=== PATIENT | female | born 1945 | race Caucasian/White ===

== ENCOUNTER 2020-04-03 22:51 | Emergency (ER) | payer OTHER, BC ==
--- OUTSIDE RECORDS SUMMARY | 2020-04-03 22:55 | XMS REPORT ---
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 Acti ve Problem Interstitial cystitis N30.10 Active Problem Essential hypertension I10 Activ e Problem Conductive hearing loss, bilateral H90.0 Active Problem IFG (impaired fasting glucose) R73.01 Active Problem BMI 29.0-29.9,adult Z68.29 Active Problem Primary insomnia F51.01 Active Problem PAC (premature atrial contraction) I49.1 Active Problem Intractable migraine without status G43.919 Active migrainosus, unspecified migraine type Problem Rhinitis, unspecified type J31.0 A ctive Medications Medication Code Code Instructions Start End Status Dosage System Date Date Bystolic [facility] 61951405838 10 mg orally Inactive 1 tab (s) once a day Losartan [place] 93913174046 100 mg orally Jan 24, Active 1 tab (s) Potassium once a day 2019 Norvasc [facility] 06354611595 5 mg orally once Jan 24, Active 1 t ab(s) a day 2019 Results No Known Results Summary Purpose eClinicalWorks Submission
--- OUTSIDE RECORDS SUMMARY | 2020-04-03 22:55 | XMS REPORT ---
:1945 Author Organization [employer]Works Care Team Providers Name Role Phone FLORENCIA BROWNE Provider Role Unavailable Allergies, Adverse Reactions, Alerts Substance Reaction Event Type N.K.D.A. 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 Acti ve Medications Medication Code Code Instructions Start End Status Dosage System Date Date Bystolic [facility] 59629075839 5 mg orally Jan 11, Active 1 tab(s ) once a day 2018 atorvastatin [facility] 67151728372 10MG orally Active 1 t ab(s) once a day (at bedtime) Imitrex [facility] 57225941039 50 mg orally Oct 04, Active 1 tab(s ) once as needed 2018 for migraine Metoprolol [facility] 74764018105 100 mg orally Inactive 1 tab(s) Tartrate once a day AMLODIPINE [facility] 71152414360 5 mg orally Active 1 tab (s) BESYLATE once a day Boniva [facility] 82626495720 150 mg orally Active 1 tab( s) once a month imipramine [facility] 74729300495 50 mg orally Jan 11, Active 1 ta b(s) once a day at 2019 bedtime Pepcid [facility] 80178186061 20 mg orally Active 1 tab(s ) once as needed Vital Signs Date/Time: Jan 11, 2019 Temperature 97.6 F Weight 155 lbs Height 60.5 in Respiratory Rate 16 /min Pulse 66 /min Blood Pressure Diastolic 80 mm Hg Blood Pressure Systolic 130 mm Hg BMI 29.77 Index Oximetry 98 % Results No Known Results Summary Purpose eClinicalWorks Submission
--- OUTSIDE RECORDS SUMMARY | 2020-04-03 22:55 | XMS REPORT ---
:1945 Author Organization eClinicalWorks Care Team Providers Name Role Phone FLORENCIA BROWNE Provider Role Unavailable Allergies, Adverse Reactions, Alerts Substance Reaction Event Type N.K.D.A. Info Not Available Non Drug Allergy Problems Problem Type Condition Code Onset Dates Condition Statu s Assessment Primary insomnia F51.01 Active Problem Interstitial cystitis N30.10 Active Assessment Hypercholesteremia E78.00 Active Assessment Essential hypertension I10 Activ e Problem Intractable migraine without status G43.919 Active migrainosus, unspecified migraine type Problem Rhinitis, unspecified type J31.0 A ctive Problem Primary insomnia F51.01 Active Problem Hypercholesteremia E78.00 Active Problem Essential hypertension I10 Activ e Problem PAC (premature atrial contraction) I49.1 Active Problem 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 Acti ve Medications Medication Code Code Instructions Start End Status Dosage System Date Date Boniva [facility] 14815190837 150 mg orally Active 1 tab( s) once a month atorvastatin [facility] 79885251843 10MG orally Active 1 t ab(s) once a day (at bedtime) AMLODIPINE [facility] 11812771930 5 mg orally Active 1 tab (s) BESYLATE once a day Ambien [facility] 28491039681 5 mg orally Oct 04, Inactive 1 tab(s ) once a day (at 2018 bedtime) Metoprolol [facility] 74324851198 100 mg orally Active 1 t ab(s) Tartrate once a day imipramine [facility] 89310318961 50 mg orally Active 1 ta b(s) once a day at bedtime Pepcid [facility] 73076401925 20 mg orally Active 1 tab(s ) once as needed Imitrex [facility] 54557446983 50 mg orally Oct 04, Active 1 tab(s ) once as needed 2017 for migraine Results No Known Results Summary Purpose eClinicalWorks Submission
--- OUTSIDE RECORDS SUMMARY | 2020-04-03 22:55 | XMS REPORT | Continuity of Care Document ---
:1945 Author Organization [facility] [employer] [facility] Care Team Providers Name Role Phone [facility] [employer] [facility] Unavailable Un available Problems Problem Status Onset Classification Date Comments Sourc e Date Reported Hypercholesteremia Active 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/2020 [facility] Interstitial cystitis Active 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/2020 [facility] Essential Active Diagnosis 02/27/2020 [facility] hypertension Med Julius up Osteoporosis Active Diagnosis 03/30/2018 [facility] Foot swelling Active Diagnosis 09/10/2017 [facility] Left foot pain Active Diagnosis 09/10/2017 [facility] Closed fracture of Active Diagnosis 09/10/2017 [facility] left foot, initial M ed Group encounter Osteoporosis of Active 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/2020 [facility] forearm [facility] PAC (premature atrial Active 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/2020 [facility] contraction) Med [place] up Obesity due to excess Active Diagnosis 04/04/2018 [facility] calories Med Group Weight gain Active Diagnosis 01/31/2018 [facility] Preop cardiovascular Active Diagnosis 01/31/2018 [facility] exam [facility] Group Unspecified Active Diagnosis 03/30/2018 [facility] abnormalities of Med Group breathing Special screening for Active Diagnosis 03/30/2018 [facility] other specified Med Group conditions Encounter for Active Diagnosis 11/29/2018 [facility] screening mammogram Med Group for breast cancer Encounter for Active Diagnosis 12/30/2019 [facility] immunization Med [facility] up Unspecified Active Diagnosis 03/30/2018 [facility] conductive hearing M ed Group loss Osteoporosis Active Diagnosis 03/30/2018 [facility] screening Med Group Screening for other Active Diagnosis 03/30/2018 [facility] and unspecified Med Group cardiovascular conditions Fatigue due to Active Diagnosis 03/28/2018 [facility] excessive exertion, Med Group initial encounter Overweight Active Diagnosis 03/28/2018 [facility] Bradycardia Active Diagnosis 03/28/2018 [facility] Fracture-metatarsal Active Problem 07/10/2016 [facility] Ankle Active Problem 07/10/2016 [place] instability/hypermobi [facility] Tenosynovitis of foot Active Problem 07/10/2016 [place] [facility] BMI 29.0-29.9,adult Active 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/2020 [facility] Seborrheic keratosis Active Diagnosis 07/06/2018 [facility] Dependent rubor Active Diagnosis 05/12/2018 [facility] Leg edema Active Diagnosis 05/12/2018 [facility] Pain in left foot Active Diagnosis 07/10/2016 [facility] Keratoderma Active Diagnosis 07/10/2016 [facility] Plantar Active Problem 07/10/2016 [place] porokeratosis, Branc h acquired Podiatry Respiratory Active Diagnosis 12/30/2019 [facility] re abnormality Med Grou p Intractable migraine Active 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/2020 [facility] without status Jose adam migrainosus, unspecified migraine type Rhinitis, unspecified Active 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/2020 [facility] type Med Group Primary insomnia Active 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/2020 [facility] Conductive hearing Active 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/2020 [facility] loss, bilateral Med Group IFG (impaired fasting Active 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/2020 [facility] glucose) Med Group Fatigue, unspecified Active Diagnosis 01/18/2020 [facility] type Med Group Advance directive Active Diagnosis 12/30/2019 [facility] discussed with Jose adam patient Bronchitis Active Diagnosis 11/26/2019 [facility] Elevated TSH Active Diagnosis 01/18/2020 [facility] Viral gastroenteritis Active Diagnosis 10/16/2018 [facility] Acute gastritis Active Diagnosis 10/16/2018 [facility] without hemorrhage, Med Group unspecified gastritis type Excessive use of Active Diagnosis 10/16/2018 [facility] nonsteroidal Med Julius up anti-inflammatory drug (NSAID) Pharyngitis, Active Diagnosis 12/13/2018 [facility] unspecified etiology Med Group Allergic rhinitis, Active Diagnosis 03/09/2019 [facility] seasonal Med Group Medications Medication Details Route Status Patient Ordering Order Source Instructions Provider Date hydrochlorothiazide 1 tab(s) orally Active 12.5 mg [facility] 01/28/ [facility] orally once a 2020 Med Group day Losartan Potassium 1 tab(s) orally Active 100 mg orally [facility] 01/24/ [facility] once a day 2019 Med Group Norvasc 1 tab(s) orally Active 5 mg orally [facility] 01/24/ [facility] once a day 2019 Med Group clonidine 1 tab(s) orally Active 0.1 mg orally [facility] 01/09/ [facility] q6hrs as 2019 Med Group needed for SBP > 160 DBP > 100 Losartan Potassium 1 tab(s) orally Active 100 mg orally [facility] 01/09/ [facility] once a day 2019 Med Group Tessalon Perles 1-2 orally Active 100 mg orally [facility] 11/15/ [facility] cap(s) 3 times a day 2018 Med Group as needed for cough levofloxacin 1 tab(s) orally Active 500 mg orally [facility] 11/15/ [facility] every 2018 Med Group hours Amitriptyline 1-2 orally Active 10 mg orally [facility] 06/15/ [facility] Hydrochloride tab(s) once a day 2019 Med Julius up (at bedtime) temazepam 1 cap(s) orally Active 15 mg orally [facility] 05/23/ [facility] once a day 2019 Med Group (at bedtime) Bystolic 1 tab(s) orally Active 10 mg orally [facility] 05/16/ [facility] once a day 2018 Med Group TraZODONE 1-2 orally Active 50 mg orally [facility] 05/16/ [facility] Hydrochloride tab(s) qhs as needed 2018 Med Group Tessalon Perles 1-2 orally Active 100 mg orally [place] 03/14/ [facility] cap(s) 3 times a day 2019 Med Group as needed for cough prednisone 1 tab(s) orally Active 20 mg orally [facility] 03/12/ [facility] once a day 2019 Med Group levofloxacin 1 tab(s) orally Active 500 mg orally [facility] 03/02/ [facility] every 2018 [facility] Group hours Bystolic 1 tab(s) orally Active 5 mg orally [facility] 01/11/ [facility] once a day 2019 Med Group imipramine 1 tab(s) orally Active 50 mg orally [facility] 01/11/ [facility] once a day at 2019 Med Group bedtime Imitrex 1 tab(s) orally Active 50 mg orally [facility] 10/04/ [facility] once as 2018 Med Group needed for migraine Ambien 1 tab(s) orally Active 5 mg orally [facility] 10/04/ [facility] once a day 2018 Med Group (at bedtime) hydrochlorothiazide 1 tab(s) orally Active 12.5 mg [facility] 05/01/ [facility] orally once a 2018 Med Group day Metoprolol Tartrate 1 tab(s) orally Active 100 mg orally [facility] 11/25 / [facility] once a day 2016 Med Group Boniva 1 tab(s) orally Active 150 mg orally [facility] 01/17/ [facility] once a month 2017 Med Group Boniva 1 tab(s) orally Active 150 mg orally [facility] once a month Med Group atorvastatin 1 tab(s) orally Active 10 mg orally [facility] once a day [facility] Group metoprolol 1 tab(s) orally Active 100 mg orally [facility] once a day Med Group AMLODIPINE BESYLATE 1 tab(s) orally Active 5 mg orally [facility] once a day Med Group imipramine 1 tab(s) orally Active 50 mg orally [facility] once a day Med Group (at bedtime) Nexium 1 cap(s) orally Active 40 mg orally [facility] once a day Med Group Metoprolol Tartrate 1 tab(s) orally Active 100 mg orally [facility] once a day [facility] Group Nexium 1 cap(s) orally Active 20 mh orally DE[facility] once a day Med Group Boniva 1 tab(s) orally Active 150 mg orally [facility] once a month Med Group AMLODIPINE BESYLATE 1 tab(s) orally Active 5 mg orally GISELL [facility] once a day Med Group Boniva 1 tab(s) orally Active 150MG orally ALBER[place]AD[facility] once a month Med Group atorvastatin 1 tab(s) orally Active 10MG orally BR[facility] once a day Med Group (at bedtime) alendronate 1 tab(s) orally Active 70 mg orally [facility] once a week [facility] Group Nexium 1 cap(s) orally Active 40 mg orally [place] [facility] once a day Med Group imipramine 1 tab(s) orally Active 50 mg orally [facility] once a day [facility] Group atorvastatin 1 tab(s) orally Active 10 mg orally [facility] once a day Med Group (at bedtime) AMLODIPINE BESYLATE 1 tab(s) orally Active 5 mg orally [place] once a day Med Group metoprolol 1 tab(s) orally Active 100 mg orally [facility] once a day [facility] Group Pepcid 1 tab(s) orally Active 20 mg orally [facility] once as Med Group needed Bystolic 1 tab(s) orally Active 10 mg orally [facility] once a day Med Group Bystolic 1 tab(s) orally Active 5 mg orally [facility] once a day Med Group Allergies, Adverse Reactions, Alerts Substance Category Reaction Severity Reaction Status Date Comments S ource type Reported N.K.D.A. Adverse Info Not Adverse [facility] Reaction Available Reaction 9 Med Group trazodone Adverse made her Adverse Active [facility] Reaction feel so bad Reaction 0 Me d Group temazepam Adverse upset Adverse Active [facility] Reaction stomach Reaction 0 Med Gr oup Immunizations Immunization Date Given Site Status Last Comments Source Updated TDap 05/02/2019 completed [facility] Pneumovax 23 02/27/2018 completed [facility] Results No Data Provided for This Section Pathology Reports No Data Provided for This Section Diagnostic Reports No Data Provided for This Section Consultation Notes No Data Provided for This Section Discharge Summaries No Data Provided for This Section History and Physicals No Data Provided for This Section Vital Signs Vital Sign Value Date Comments Source Temperature Oral (F) 97.7 F 01/30/2020 [facility] Weight 158 01/30/2020 [facility] Height 60.5 01/30/2020 [facility] Respitory Rate 16 01/30/2020 [facility] Diastolic (mm Hg) 80 01/30/2020 [facility] Systolic (mm Hg) 150 01/30/2020 [facility] M ed Group Temperature Oral (F) 96.1 F 01/09/2020 [facility] Weight 159.2 01/09/2020 [facility] Height 60.5 01/09/2020 [facility] Respitory Rate 16 01/09/2020 [facility] Diastolic (mm Hg) 82 01/09/2020 [facility] Systolic (mm Hg) 170 01/09/2020 [facility] M ed [facility] Temperature Oral (F) 98.0 F 11/15/2019 [facility] Weight 160 11/15/2019 [facility] Height 60.5 11/15/2019 [facility] Respitory Rate 16 11/15/2019 [facility] Diastolic (mm Hg) 80 11/15/2019 [facility] Systolic (mm Hg) 120 11/15/2019 [facility] M ed Group Weight 155 05/16/2019 [facility] Height 60.5 05/16/2019 [facility] Respitory Rate 16 05/16/2019 [facility] Diastolic (mm Hg) 76 05/16/2019 [facility] Systolic (mm Hg) 130 05/16/2019 [facility] M ed [facility] Temperature Oral (F) 97.5 F 05/02/2019 [facility] Weight 153.6 05/02/2019 [facility] Height 60.5 05/02/2019 [facility] Respitory Rate 16 05/02/2019 [facility] Diastolic (mm Hg) 80 05/02/2019 [facility] Systolic (mm Hg) 128 05/02/2019 [facility] M ed Group Temperature Oral (F) 96.9 F 03/14/2019 [facility] Weight 154 03/14/2019 [facility] Height 60.5 03/14/2019 [facility] Respitory Rate 16 03/14/2019 [facility] Diastolic (mm Hg) 60 03/14/2019 [facility] Systolic (mm Hg) 120 03/14/2019 [facility] M ed [facility] Temperature Oral (F) 97.8 F 03/02/2019 [facility] Weight 154 03/02/2019 [facility] Height 60.5 03/02/2019 [facility] Respitory Rate 16 03/02/2019 [facility] Diastolic (mm Hg) 70 03/02/2019 [facility] Systolic (mm Hg) 130 03/02/2019 [facility] M ed Group Temperature Oral (F) 97.6 F 01/11/2019 [facility] Weight 155 01/11/2019 [facility] Height 60.5 01/11/2019 [facility] Respitory Rate 16 01/11/2019 [facility] Diastolic (mm Hg) 80 01/11/2019 [facility] Systolic (mm Hg) 130 01/11/2019 [facility] M ed [facility] Temperature Oral (F) 96.5 F 12/05/2018 [facility] Weight 155 12/05/2018 [facility] Height 60.5 12/05/2018 [facility] Respitory Rate 16 12/05/2018 [facility] Diastolic (mm Hg) 70 12/05/2018 [facility] Systolic (mm Hg) 122 12/05/2018 [facility] M ed Group Temperature Oral (F) 98.3 F 10/04/2018 [facility] Weight 152 10/04/2018 [facility] Height 60.5 10/04/2018 [facility] Respitory Rate 16 10/04/2018 [facility] Diastolic (mm Hg) 70 10/04/2018 [facility] Systolic (mm Hg) 120 10/04/2018 [facility] M [facility] Temperature Oral (F) 97.0 F 06/30/2018 [facility] Weight 151 06/30/2018 [facility] Height 60.5 06/30/2018 [facility] Respitory Rate 16 06/30/2018 [facility] Diastolic (mm Hg) 70 06/30/2018 [facility] Systolic (mm Hg) 132 06/30/2018 [facility] M ed Group Temperature Oral (F) 98.4 F 05/01/2018 [facility] Weight 152 05/01/2018 [facility] Height 60.5 05/01/2018 [facility] Respitory Rate 16 05/01/2018 [facility] Diastolic (mm Hg) 72 05/01/2018 [facility] Systolic (mm Hg) 110 05/01/2018 [facility] M ed Group Weight 152 03/29/2018 [facility] Height 60.5 03/29/2018 [facility] Weight 152.8 03/21/2018 [facility] Height 60.5 03/21/2018 [facility] Temperature Oral (F) 96.8 F 03/20/2018 [facility] Weight 152 03/20/2018 [facility] Height 60.5 03/20/2018 [facility] Respitory Rate 16 03/20/2018 [facility] Diastolic (mm Hg) 70 03/20/2018 [facility] Systolic (mm Hg) 130 03/20/2018 [facility] M [facility] Temperature Oral (F) 97.2 F 02/27/2018 [facility] Weight 152 02/27/2018 [facility] Height 60.5 02/27/2018 [facility] Respitory Rate 16 02/27/2018 [facility] Diastolic (mm Hg) 82 02/27/2018 [facility] Systolic (mm Hg) 130 02/27/2018 [facility] M [facility] Group Temperature Oral (F) 97.3 F 01/23/2018 [facility] Weight 152.2 01/23/2018 [facility] Height 60 01/23/2018 [facility] Respitory Rate 16 01/23/2018 [facility] Diastolic (mm Hg) 82 01/23/2018 [facility] Systolic (mm Hg) 140 01/23/2018 [facility] M [facility] Temperature Oral (F) 96.8 F 09/02/2017 [facility] Weight 15.4 09/02/2017 [facility] Height 60 09/02/2017 [facility] Respitory Rate 16 09/02/2017 [facility] Diastolic (mm Hg) 72 09/02/2017 [facility] Systolic (mm Hg) 130 09/02/2017 [facility] M [facility] Temperature Oral (F) 98.4 F 01/17/2017 [facility] Weight 151.6 01/17/2017 [facility] Height 60 01/17/2017 [facility] Respitory Rate 16 01/17/2017 [facility] Diastolic (mm Hg) 78 01/17/2017 [facility] Systolic (mm Hg) 130 01/17/2017 [facility] M [facility] Temperature Oral (F) 97.0 F 12/27/2016 [facility] Weight 152.0 12/27/2016 [facility] Height 61 12/27/2016 [facility] Respitory Rate 16 12/27/2016 [facility] Diastolic (mm Hg) 92 12/27/2016 [facility] Systolic (mm Hg) 170 12/27/2016 [facility] Temperature Oral (F) 97.7 F 12/23/2016 [facility] Weight 152 12/23/2016 [facility] Height 61 12/23/2016 [facility] Respitory Rate 16 12/23/2016 [facility] Diastolic (mm Hg) 80 12/23/2016 [facility] Systolic (mm Hg) 148 12/23/2016 [facility] M ed Group Weight 148 07/07/2016 [facility] Height 62 07/07/2016 [facility] Heart Rate 58 07/07/2016 [facility] Diastolic (mm Hg) 67 07/07/2016 [facility] Systolic (mm Hg) 125 07/07/2016 [facility] Weight 148 03/18/2014 [facility] [place] [facility] Heart Rate 68 03/18/2014 [facility] [place] [facility] Diastolic (mm Hg) 80 03/18/2014 [facility] Systolic (mm Hg) 157 03/18/2014 [facility] Weight 148 02/25/2014 [facility] [place] [facility] Heart Rate 69 02/25/2014 [place] [facility] Diastolic (mm Hg) 70 02/25/2014 [facility] Systolic (mm Hg) 130 02/25/2014 [facility] Podiatry Encounters Location Location Encounter Encounter Reason Attending ADM CO Stat us Source Details Type Number For Provider Date Date Visit [place] NEW PT [id number] 02/25 02/25 [place] [id number] /2013 [facility] [id number] Podi atry [id number] [facility] PT [id number] 02/25 02/25 [place] [id number] /2013 [facility] [id number] Podi atry [id number] [facility] PT [id number] 02/25 02/25 [place] [id number] /2013 [facility] [id number] Podi atry [id number] [facility] PT [id number] 02/25 02/25 [facility] [id number] /2013 [facility] [id number] [place] NEW [place] [id number] 02/25 02/25 [facility] [id number] /2013 [facility] Podiatry [id number] [place] [facility] PT [id number] 02/25 02/25 [facility] [id number] /2013 [facility] Podiatry [id number] [place] NEW PT [id number] 02/25 02/25 [facility] [id number] /2013 [facility] Podiatry [id number] [place] NEW PT [id number] 02/25 02/25 [facility] [id number] Med [facility]up Podiatry [id number] [place] FOLLOW-UP: [id number] 03/18 03/18 [facility] Injection to [id number] /2013 [facility] the peroneus [id number] [place] [id number] [facility] FOLLOW-UP: [id number] 03/18 03/18 [facility] Injection to [id number] [facility] the peroneus [id number] Podiatry [place] Rt [id number] [facility] FOLLOW-UP: [id number] 03/18 03/18 [facility] Injection to [id number] /2013 Med Group Podiatry the peroneus [id number] [place] [id number] [facility] FOLLOW-UP: [id number] 03/18 03/18 [facility] Injection to [id number] Med Group Podiatry the peroneus [id number] [place] [id number] [facility] FOLLOW-UP: [id number] 03/18 03/18 [facility] Injection to [id number] Med Group Podiatry the peroneus [id number] [place] [id number] [facility] FOLLOW-UP: [id number] 03/18 03/18 [facility] Injection to [id number] Med Group Podiatry the peroneus [id number] [place] [id number] [facility] FOLLOW-UP: [id number] 03/18 03/18 [facility] Injection to [id number] Med Group Podiatry the peroneus [id number] [place] [id number] [facility] ESTABLISHED [id number] 07/07 07/07 [facility] PT: [id number] /2015 [facility] [id number] Podi atry [id number] [facility] ESTABLISHED [id number] 07/07 07/07 [facility] PT: [id number] /2015 Med Gr oup Podiatry [id number] [place] ESTABLISHED [id number] 07/07 07/07 [facility] PT: [id number] /2015 Med Gr oup Podiatry [id number] [place] ESTABLISHED [id number] 07/07 07/07 [facility] PT: [id number] /2015 Med Gr oup Podiatry [id number] [place] ESTABLISHED [id number] 07/07 07/07 [facility] PT: [id number] /2015 Med Gr oup Podiatry [id number] [place] ESTABLISHED [id number] 07/07 07/07 [facility] PT: [id number] /2015 Med Gr oup Podiatry [id number] [facility] MEASUREMENT AND VERIFICATION ENGINEER EST CARE [id number] 12/23 12/23 [facility] [id number] /2016 Med G roup Group [id number] [facility] MEASUREMENT AND VERIFICATION ENGINEER EST CARE [id number] 12/23 12/23 [facility] [id number] /2016 Med G [facility]oup Group [id number] [facility] MEASUREMENT AND VERIFICATION ENGINEER EST CARE [id number] 12/23 12/23 [facility] [id number] /2016 Med G [facility]oup Group [id number] [facility] MEASUREMENT AND VERIFICATION ENGINEER EST CARE [id number] 12/23 12/23 [facility] [id number] /2016 Med G [facility]oup [facility] [id number] [facility] MEASUREMENT AND VERIFICATION ENGINEER EST CARE [id number] 12/23 12/23 [facility] [id number] /2016 [facility] [id number] [facility] awe/fasting [id number] 12/27 12/27 [facility] [id number] /2016 [facility] [id number] [facility] DEXA REPORT [id number] 12/30 12/30 [facility] [id number] /2016 Med G [facility]oup [facility] [id number] [facility] DEXA REPORT [id number] 12/30 12/30 [facility] [id number] /2016 Med Leighann roup Group [id number] [facility] DEXA REPORT [id number] 12/30 12/30 [facility] [id number] /2016 Med G roup Group [id number] [facility] nl mammo [id number] 12/31 12/31 [facility] [id number] /2016 Med G [facility]oup Group [id number] [facility] n[facility] mamm[facility] [id number] 12/31 12/[id number] /[facility] Med G roup [facility] [id number] [facility] nl mammo [id number] 12/31 12/31 P [facility] [id number] /2016 Med G roup Group [id number] [facility] nl mammo [id number] 12/31 12/31 P [facility] [id number] /2016 Med G roup Group [id number] [facility] AWE F/U [id number] 01/17 01/17 [facility] [id number] Med G roup Group [id number] [facility] AWE F/U [id number] 01/17 01/17 [facility] [id number] /2016 Med G roup Group [id number] Procedures No Data Provided for This Section Assessment and Plan No Data Provided for This Section Plan of Care No Data Provided for This Section Social History Social History Date Source Social History ElementQualifiersDate Reported 01/17/2017 [facility] Occupation: . Retired Jan 17, 2017 Caffeine: yes. frequency:, 1 cup of coffee/soda/tea per day Jan 17, 2017 Children: . Yes, 1 daughter Jan 17, 2017 Exercise: yes. 3 x per week Jan 17, 2017 Pets: . cats: dogs: 1 Jan 17, 2017 Drug use: no. Jan 17, 2017 Sexually active: yes. Jan 17, 2017 Marital Status: . Jan 17, 2017 Tobacco Use: . Are you a: never smoker Jan 17, 2017 Alcohol Use: . Status: Never Drink Jan 17, 2017 Travel ouside [place]: no. Jan 17, 2017 Smoke Exposure: . Second Hand Smoke Exposure: Yes Jan 17, 2017 Occup. exposure: none. Jan 17, 2017 Social History ElementQualifiersDate Reported 07/07/2016 [place] [facility] Tobacco Use: . Are you a:: never smoker Jul 07, 2016 Family History Value Date Source QualifierDescriptionCommentDate Reported 01/28/2017 [facility] Maternal Grand Mother Comment not available Jan 17, 2017 Paternal Grand Mother Comment not available Jan 17, 2017 Siblings alive Comment not available Jan 17, 2017 Maternal Grand Father Comment not available Jan 17, 2017 Children alive Comment not available Jan 17, 2017 Maternal aunt Comment not available Jan 17, 2017 Father smoker Jan 17, 2017 Paternal Grand Father Comment not available Jan 17, 2017 Paternal uncle Comment not available Jan 17, 2017 Mother Comment not available Jan 17, 2017 Paternal aunt Comment not available Jan 17, 2017 Maternal uncle Comment not available Jan 17, 2017 QualifierDescriptionCommentDate Reported 01/26/2017 [facility] Maternal Grand Mother Comment not available Jan 17, 2017 Paternal Grand Mother Comment not available Jan 17, 2017 Siblings alive Comment not available Jan 17, 2017 Maternal Grand Father Comment not available Jan 17, 2017 Children alive Comment not available Jan 17, 2017 Maternal aunt Comment not available Jan 17, 2017 Father smoker Jan 17, 2017 Paternal Grand Father Comment not available Jan 17, 2017 Paternal uncle Comment not available Jan 17, 2017 Mother Comment not available Jan 17, 2017 Paternal aunt Comment not available Jan 17, 2017 Maternal uncle Comment not available Jan 17, 2017 QualifierDescriptionCommentDate Reported 07/10/2016 [place] [facility] Maternal Grandmother Comment not available Jul 07, 2016 Paternal Grandmother Comment not available Jul 07, 2016 Siblings Comment not available Jul 07, 2016 Maternal Grandfather Comment not available Jul 07, 2016 Children Comment not available Jul 07, 2016 Father Comment not available Jul 07, 2016 Paternal Grandfather Comment not available Jul 07, 2016 Mother Comment not available Jul 07, 2016 Other: Comment not available Jul 07, 2016 Advance Directives No Data Provided for This Section Functional Status No Data Provided for This Section
--- OUTSIDE RECORDS SUMMARY | 2020-04-03 22:55 | XMS REPORT ---
:1945 Author Organization eClinicalWorks Care Team Providers Name Role Phone STANLEY CLEMONS Provider Role Unavailable Allergies No Known Allergies Problems Problem Type Condition Code Onset Dates Condition Statu s Problem Hypercholesteremia E78.00 Active Problem Essential hypertension I10 Activ e Problem Osteoporosis M81.0 Active Problem Interstitial cystitis N30.10 Active Medications No Known Medications Results No Known Results Summary Purpose eClinicalWorks Submission
--- OUTSIDE RECORDS SUMMARY | 2020-04-03 22:55 | XMS REPORT ---
:1945 Author Organization eClinicalWorks Care Team Providers Name Role Phone GISELLDAIANA Provider Role Unavailable Allergies, Adverse Reactions, Alerts Substance Reaction Event Type N.K.D.A. 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 Acti ve Problem Interstitial cystitis N30.10 Active Problem Conductive hearing loss, bilateral H90.0 Active Assessment PAC (premature atrial contraction) I49.1 Active Problem IFG (impaired fasting glucose) R73.01 Active Assessment Fatigue, unspecified type R53.83 Ac tive Assessment BMI 29.0-29.9,adult Z68.29 Active Problem BMI 29.0-29.9,adult Z68.29 Active Problem Primary insomnia F51.01 Active Problem PAC (premature atrial contraction) I49.1 Active Problem Intractable migraine without status G43.919 Active migrainosus, unspecified migraine type Problem Rhinitis, unspecified type J31.0 A ctive Assessment Essential hypertension I10 Activ e Assessment Conductive hearing loss, bilateral H90.0 Active Assessment Hypercholesteremia E78.00 Active Assessment IFG (impaired fasting glucose) R73.01 Active Assessment Encounter for immunization Z23 A ctive Assessment Annual physical exam Z00.00 Active Assessment Colon cancer screening Z12.11 Activ e Assessment Advance directive discussed with Z71.89 Active patient Assessment Respiratory abnormality J98.9 Acti ve Problem Essential hypertension I10 Activ e Medications Medication Code Code Instructions Start End Status Dosage System Date Date Bystolic [facility] 82345646663 5 mg orally once Jan 11, Active 1 tab(s) a day 2018 Nery Shilpi ND 83512406501 100 mg orally 28 February Acti ve 1-2 times a day as 2018 cap(s) needed for cough atorvastatin ND 61548320510 10MG orally once Active 1 tab(s) a day (at bedtime) Pepcid ND 12680971685 20 mg orally Active 1 tab(s ) once as needed imipramine NDC 88109774594 50 mg orally Active 1 ta b(s) once a day (at bedtime) Boniva [facility] 24707991644 150 mg orally Active 1 tab( s) once a month AMLODIPINE [facility] 73665285839 5 mg orally once Active 1 tab(s) BESYLATE a day Imitrex [facility] 71300035271 50 mg orally Oct 04, Active 1 tab(s ) once as needed 2018 for migraine Vital Signs Date/Time: May 02, 2019 Temperature 97.5 F Weight 153.6 lbs Height 60.5 in Respiratory Rate 16 /min Pulse 67 /min Blood Pressure Diastolic 80 mm Hg Blood Pressure Systolic 128 mm Hg BMI 29.50 Index Oximetry 97 % Results No Known Results Immunizations Vaccine Administration Date TDap May 02, 2019 Summary Purpose eClinicalWorks Submission
--- OUTSIDE RECORDS SUMMARY | 2020-04-03 22:56 | XMS REPORT ---
:1945 Author Organization eClinicalWorks Care Team Providers Name Role Phone FLORENCIA BROWNE Provider Role Unavailable Allergies, Adverse Reactions, Alerts Substance Reaction Event Type N.K.D.A. 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 Acti ve Medications Medication Code Code Instructions Start End Status Dosage System Date Date AMLODIPINE [facility] 12440951484 5 mg orally once Active 1 tab(s) BESYLATE a day Pepcid [facility] 95531727318 20 mg orally Active 1 tab(s ) once as needed atorvastatin [facility] 85033982916 10MG orally once Active 1 tab(s) a day (at bedtime) Bystolic [facility] 36622409466 5 mg orally once Jan 11, Active 1 tab(s) a day 2018 Boniva [facility] 62023037560 150 mg orally Active 1 tab( s) once a month Imitrex [facility] 34992026308 50 mg orally Oct 04, Active 1 tab(s ) once as needed 2017 for migraine Tessalon Perles ND 54898191987 100 mg orally 28 February Acti ve 1-2 times a day as 2018 cap(s) needed for cough Results No Known Results Summary Purpose eClinicalWorks Submission
--- OUTSIDE RECORDS SUMMARY | 2020-04-03 22:56 | XMS REPORT ---
:1945 Author Organization eClinicalWorks Care Team Providers Name Role Phone STANLEY CLEMONS Provider Role Unavailable Allergies No Known Allergies Problems Problem Type Condition Code Onset Dates Condition Statu s Problem Hypercholesteremia E78.00 Active Problem Interstitial cystitis N30.10 Active Problem Essential hypertension I10 Activ e Problem Osteoporosis M81.0 Active Medications Medication Code System Code Instructions Start End Date Status Dos age Date atorvastatin [facility][NOTE 3] 44192923046 10 mg orally Active 1 tab(s) once a day (at bedtime) Results No Known Results Summary Purpose eClinicalWorks Submission
--- OUTSIDE RECORDS SUMMARY | 2020-04-03 22:56 | XMS REPORT ---
:1945 Author Organization eClinicalWorks Care Team Providers Name Role Phone LINUS BROWENISH Provider Role Unavailable Allergies No Known Allergies [...] Rhinitis, unspecified type J31.0 A ctive Medications No Known Medications Results No Known Results Summary Purpose eClinicalWorks Submission
--- OUTSIDE RECORDS SUMMARY | 2020-04-03 22:56 | XMS REPORT ---
:1945 Author Organization eClinicalWorks Care Team Providers Name Role Phone STANLEY CLEMONS Provider Role Unavailable Allergies No Known Allergies Problems Problem Type Condition Code Onset Dates Condition Statu s Problem Hypercholesteremia E78.00 Active Problem Essential hypertension I10 Activ e Problem Osteoporosis M81.0 Active Problem Interstitial cystitis N30.10 Active Medications Medication Code System Code Instructions Start End Date Status Dos age Date imipramine [facility] 94486379820 50 mg orally Active 1 ta b(s) once a day Boniva [facility] 99266868523 150 mg orally Active 1 tab( s) once a month atorvastatin [facility] 06848781762 10 mg orally Active 1 tab(s) once a day (at bedtime) Results No Known Results Summary Purpose eClinicalWorks Submission
--- OUTSIDE RECORDS SUMMARY | 2020-04-03 22:56 | XMS REPORT ---
[...] type J31.0 A ctive Medications Medication Code System Code Instructions Start Date End Date Status Dosage Boniva [facility] 32319836063 150 mg orally Active 1 tab( s) once a month Results No Known Results Summary Purpose eClinicalWorks Submission
--- OUTSIDE RECORDS SUMMARY | 2020-04-03 22:56 | XMS REPORT ---
:1945 Author Organization eClinicalWorks Care Team Providers Name Role Phone STANLEY CLEMOSN Provider Role Unavailable Allergies No Known Allergies Problems Problem Type Condition Code Onset Dates Condition Statu s Problem Hypercholesteremia E78.00 Active Problem Interstitial cystitis N30.10 Active Problem Essential hypertension I10 Activ e Problem Osteoporosis M81.0 Active Medications No Known Medications Results No Known Results Summary Purpose eClinicalWorks Submission
--- OUTSIDE RECORDS SUMMARY | 2020-04-03 22:56 | XMS REPORT ---
[...] Start End Status Dosage System Date Date Imitrex [facility] 86064226987 50 mg orally Oct 04, Active 1 tab(s ) once as needed 2017 for migraine AMLODIPINE [facility] 69293529072 5 mg orally once Active 1 tab(s) BESYLATE a day Bystolic [facility] 02536646646 5 mg orally once Jan 11, Active 1 tab(s) a day 2019 Boniva [facility] 24458342931 150 mg orally Active 1 tab( s) once a month Pepcid [facility] 47715341955 20 mg orally Active 1 tab(s ) once as needed atorvastatin [facility] 20290786848 10MG orally once Active 1 tab(s) a day (at bedtime) Results No Known Results Summary Purpose eClinicalWorks Submission
--- OUTSIDE RECORDS SUMMARY | 2020-04-03 22:56 | XMS REPORT ---
:1945 Author Organization eClinicalWorks Care Team Providers Name Role Phone STANLEY CLEMONS Provider Role Unavailable Allergies, Adverse Reactions, Alerts Substance Reaction Event Type N.K.D.A. Info Not Available Non Drug Allergy Problems Problem Type Condition Code Onset Dates Condition Statu s Problem Hypercholesteremia E78.00 Active Problem Essential hypertension I10 Activ e Problem Osteoporosis M81.0 Active Assessment Foot swelling M79.89 Active Assessment Left foot pain M79.672 Active Problem Interstitial cystitis N30.10 Active Assessment Closed fracture of left foot, S92.902A Active initial encounter Medications Medication Code Code Instructions Start End Status Dosage System Date Date metoprolol [facility] 90151683629 100 mg orally Active 1 t ab(s) once a day AMLODIPINE [facility] 40236096495 5 mg orally once Active 1 tab(s) BESYLATE a day atorvastatin [facility] 98764267361 10 mg orally Active 1 tab(s) once a day (at bedtime) Boniva [facility] 89970106241 150 mg orally Active 1 tab( s) once a month imipramine [facility] 87859987362 50 mg orally Active 1 ta b(s) once a day Nexium [facility] 76944649178 40 mg orally Active 1 cap(s ) once a day Vital Signs Date/Time: Sep 02, 2017 Temperature 96.8 F Weight 15.4 lbs Height 60 in Respiratory Rate 16 /min Pulse 60 /min Blood Pressure Diastolic 72 mm Hg Blood Pressure Systolic 130 mm Hg BMI 3.01 Index Oximetry 98 % Results No Known Results Summary Purpose eClinicalWorks Submission
--- OUTSIDE RECORDS SUMMARY | 2020-04-03 22:56 | XMS REPORT ---
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 57303351309 20 mg orally Active 1 tab(s ) once as needed Bystolic [facility] 42057907366 10 mg orally Active 1 tab( s) once a day hydrochlorothiazide [facility] 23330815355 12.5 mg orally January ctive 1 tab(s) once a day 2019 Norvasc [facility] 01787101910 5 mg orally Jan 24, Active 1 tab(s) once a day 2019 Boniva [facility] 74407309644 150 mg orally Active 1 tab( s) once a month imipramine ND 19929216010 50 mg orally Active 1 ta b(s) once a day (at bedtime) Losartan Potassium ND 04589299962 100 mg orally Jan 09, Act elsie 1 tab(s) once a day 2019 Amitriptyline [facility] 65491688615 10 mg orally May Active 1 -2 Hydrochloride once a day (at 19, tab (s) bedtime) 2018 atorvastatin [facility] 35391581459 10MG orally Active 1 t ab(s) once a day (at bedtime) Imitrex [facility] 72817397836 50 mg orally Oct 04, Active 1 tab(s ) once as needed 2017 for migraine Vital Signs Date/Time: January 30, 2020 Temperature 97.7 F Weight 158 lbs Height 60.5 in Respiratory Rate 16 /min Pulse 99 /min Blood Pressure Diastolic 80 mm Hg Blood Pressure Systolic 150 mm Hg BMI 30.35 Index Oximetry 98 % Results No Known Results Summary Purpose eClinicalWorks Submission
--- OUTSIDE RECORDS SUMMARY | 2020-04-03 22:56 | XMS REPORT ---
[...] Instructions Start Date End Date Status Dosage Bystolic [facility][NOTE 3] 12247185637 10 mg orally once May 16, Active 1 tab(s) a day 2019 Results No Known Results Summary Purpose eClinicalWorks Submission
--- OUTSIDE RECORDS SUMMARY | 2020-04-03 22:56 | XMS REPORT ---
[...] Start End Date Status Dos age Date Boniva [facility] 29391653571 150 mg orally Active 1 tab( s) once a month atorvastatin [facility] 03008392016 10 mg orally Active 1 tab(s) once a day (at bedtime) Results No Known Results Summary Purpose eClinicalWorks Submission
--- OUTSIDE RECORDS SUMMARY | 2020-04-03 22:57 | XMS REPORT ---
:1945 Author Organization eClinicalWorks Care Team Providers Name Role Phone LINUS BROWNEISH Provider Role Unavailable Allergies No Known Allergies [...]
--- OUTSIDE RECORDS SUMMARY | 2020-04-03 22:57 | XMS REPORT ---
:1945 Author Organization eClinicalWorks Care Team Providers Name Role Phone STANLEY CLEMONS Provider Role Unavailable Allergies, Adverse Reactions, Alerts Substance Reaction Event Type N.K.D.A. Info Not Available Non Drug Allergy Problems Problem Type Condition Code Onset Dates Condition Statu s Problem Hypercholesteremia E78.00 Active Problem Essential hypertension I10 Activ e Problem Osteoporosis M81.0 Active Assessment Essential hypertension I10 Activ e Assessment Weight gain R63.5 Active Problem Interstitial cystitis N30.10 Active Assessment Preop cardiovascular exam Z01.810 Ac tive Medications Medication Code Code Instructions Start End Status Dosage System Date Date atorvastatin [facility] 27085631111 10 mg orally Active 1 tab(s) once a day (at bedtime) Nexium [facility] 38055484794 40 mg orally Active 1 cap(s ) once a day Boniva [facility] 53366266355 150 mg orally Active 1 tab( s) once a month imipramine [facility] 02837119018 50 mg orally Active 1 ta b(s) once a day AMLODIPINE [facility] 60561522915 5 mg orally once Active 1 tab(s) BESYLATE a day metoprolol [facility] 59425448923 100 mg orally Active 1 t ab(s) once a day Vital Signs Date/Time: Jan 23, 2018 Temperature 97.3 F Weight 152.2 lbs Height 60 in Respiratory Rate 16 /min Pulse 59 /min Blood Pressure Diastolic 82 mm Hg Blood Pressure Systolic 140 mm Hg BMI 29.72 Index Oximetry 98 % Results No Known Results Summary Purpose eClinicalWorks Submission
--- OUTSIDE RECORDS SUMMARY | 2020-04-03 22:57 | XMS REPORT ---
[...] ve Problem Interstitial cystitis N30.10 Active Assessment Bronchitis J40 Active Problem Essential hypertension I10 Activ e [...] End Status Dosage System Date Date atorvastatin [facility] 02776241973 10MG orally Active 1 t ab(s) once a day (at bedtime) Amitriptyline ND 90004678887 10 mg orally June 15, Active 1-2 Hydrochloride once a day (at 2019 tab (s) bedtime) Tessalon Perles [facility] 18061994011 100 mg orally 3 Nov 15, Acti ve 1-2 times a day as 2019 cap(s) needed for cough Pepcid ND 09758258834 20 mg orally Active 1 tab(s ) once as needed Imitrex ND 93093813644 50 mg orally Oct 04, Active 1 tab(s ) once as needed 2018 for migraine Boniva [facility] 06534730462 150 mg orally Active 1 tab( s) once a month Bystolic ND 23020018420 10 mg orally May 16, Active 1 tab (s) once a day 2018 levofloxacin ND 39489511637 500 mg orally Nov 15, Active 1 tab(s) every 24 hours 2018 imipramine ND 73708564236 50 mg orally Active 1 ta b(s) once a day (at bedtime) Vital Signs Date/Time: Nov 15, 2019 Temperature 98.0 F Weight 160 lbs Height 60.5 in Respiratory Rate 16 /min Pulse 62 /min Blood Pressure Diastolic 80 mm Hg Blood Pressure Systolic 120 mm Hg BMI 30.73 Index Oximetry 92 % Results No Known Results Summary Purpose eClinicalWorks Submission
--- OUTSIDE RECORDS SUMMARY | 2020-04-03 22:57 | XMS REPORT ---
[...] Rhinitis, unspecified type J31.0 A ctive Assessment Fatigue, unspecified type R53.83 Ac tive Assessment Essential hypertension I10 Activ e Assessment Elevated TSH R79.89 Active Problem Essential hypertension I10 Activ e Medications Medication Code Code Instructions Start End Status Dosage System Date Date Bystolic [facility] 90559185847 10 mg orally Inactive 1 tab (s) once a day Boniva [facility] 31672696667 150 mg orally Active 1 tab( s) once a month imipramine [facility] 31758303516 50 mg orally Active 1 ta b(s) once a day (at bedtime) clonidine [facility] 62849457240 0.1 mg orally Jan 09, Active 1 ta b(s) q6hrs as needed 2019 for SBP > 160 DBP > 100 Losartan ND 65189357391 100 mg orally Jan 09, Active 1 tab (s) Potassium once a day 2019 Pepcid [facility] 07440015953 20 mg orally Active 1 tab(s ) once as needed Imitrex ND 47287449814 50 mg orally Oct 04, Active 1 tab(s ) once as needed 2017 for migraine Amitriptyline [facility] 13048596685 10 mg orally June 15, Active 1-2 Hydrochloride once a day (at 2019 tab (s) bedtime) atorvastatin [facility] 02496585016 10MG orally Active 1 t ab(s) once a day (at bedtime) Vital Signs Date/Time: Jan 09, 2020 Temperature 96.1 F Weight 159.2 lbs Height 60.5 in Respiratory Rate 16 /min Pulse 64 /min Blood Pressure Diastolic 82 mm Hg Blood Pressure Systolic 170 mm Hg BMI 30.58 Index Oximetry 95 % Results No Known Results Summary Purpose eClinicalWorks Submission
--- OUTSIDE RECORDS SUMMARY | 2020-04-03 22:57 | XMS REPORT ---
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 Acti ve Problem Hypercholesteremia E78.00 Active Problem PAC (premature atrial contraction) I49.1 Active Assessment Obesity due to excess calories E66.09 Active Problem Essential hypertension I10 Activ e Problem Interstitial cystitis N30.10 Active Medications Medication Code Code Instructions Start End Status Dosage System Date Date imipramine [facility] 93966748806 50 mg orally 3 Active 1 tab(s) times a day Metoprolol [facility] 24854370507 100 mg orally Active 1 t ab(s) Tartrate once a day Nexium [facility] 80496195743 40 mg orally Active 1 cap(s ) once a day atorvastatin [facility] 86016480647 10 mg orally Active 1 tab(s) once a day Boniva [facility] 79327512415 150 mg orally Active 1 tab( s) once a month AMLODIPINE [facility] 89530927302 5 mg orally once Active 1 tab(s) BESYLATE a day Vital Signs Date/Time: March 21, 2018 Temperature - F Weight 152.8 lbs Height 60.5 in Oximetry - % Respiratory Rate - /min Pulse - /min Blood Pressure Systolic - mm Hg BMI 29.35 Index Results No Known Results Summary Purpose eClinicalWorks Submission
--- OUTSIDE RECORDS SUMMARY | 2020-04-03 22:57 | XMS REPORT ---
[...] End Date Status Dos age Date atorvastatin [facility] 66475676670 10 mg orally Active 1 tab(s) once a day (at bedtime) Results No Known Results Summary Purpose eClinicalWorks Submission
--- OUTSIDE RECORDS SUMMARY | 2020-04-03 22:57 | XMS REPORT ---
[...] forearm M81.0 Acti ve Medications Medication Code System Code Instructions Start Date End Date Status Dosage Bystolic [facility] 92054875679 5 mg orally once Jan 11, Active 1 tab(s) a day 2019 Results No Known Results Summary Purpose eClinicalWorks Submission
--- OUTSIDE RECORDS SUMMARY | 2020-04-03 22:57 | XMS REPORT ---
:1945 Author Organization eClinicalWorks Care Team Providers Name Role Phone STANLEY CLEMONS Provider Role Unavailable Allergies, Adverse Reactions, Alerts Substance Reaction Event Type N.K.D.A. 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 Acti ve Problem Hypercholesteremia E78.00 Active Problem PAC (premature atrial contraction) I49.1 Active Assessment Essential hypertension I10 Activ e Assessment Essential hypertension I10 Activ e Problem Essential hypertension I10 Activ e Problem Interstitial cystitis N30.10 Active Assessment Overweight E66.3 Active Assessment Bradycardia R00.1 Active Assessment 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 Acti ve Assessment Hypercholesteremia E78.00 Active Assessment PAC (premature atrial contraction) I49.1 Active Assessment Bradycardia R00.1 Active Assessment Fatigue due to excessive exertion, T73.3XXA Active initial encounter Assessment PAC (premature atrial contraction) I49.1 Active Medications Medication Code Code Instructions Start End Status Dosage System Date Date AMLODIPINE [facility] 47062570496 5 mg orally once Active 1 tab(s) BESYLATE a day Boniva [facility] 41898084294 150 mg orally Active 1 tab( s) once a month imipramine ND 53253639466 50 mg orally 3 Active 1 tab(s) times a day Metoprolol [facility] 47860603353 100 mg orally Active 1 t ab(s) Tartrate once a day atorvastatin ND 81744506591 10 mg orally Active 1 tab(s) once a day Nexium [facility] 96025940056 40 mg orally Active 1 cap(s ) once a day Vital Signs Date/Time: March 20, 2018 Temperature 96.8 F Weight 152 lbs Height 60.5 in Respiratory Rate 16 /min Pulse 56 /min Blood Pressure Diastolic 70 mm Hg Blood Pressure Systolic 130 mm Hg BMI 29.19 Index Oximetry 98 % Results No Known Results Summary Purpose eClinicalWorks Submission
--- OUTSIDE RECORDS SUMMARY | 2020-04-03 22:57 | XMS REPORT ---
:1945 Author Organization eClinicalWorks Care Team Providers Name Role Phone STANLEY CLEMONS Provider Role Unavailable Allergies No Known Allergies Problems Problem Type Condition Code Onset Dates Condition Statu s Problem Hypercholesteremia E78.00 Active Problem Essential hypertension I10 Activ e Problem Osteoporosis M81.0 Active Problem Interstitial cystitis N30.10 Active Medications Medication Code Code Instructions Start End Date Status Dosage System Date Metoprolol [facility] 53268003608 100 mg orally Nov 25, Active 1 t ab(s) Tartrate once a day 2017 Results No Known Results Summary Purpose eClinicalWorks Submission
--- OUTSIDE RECORDS SUMMARY | 2020-04-03 22:58 | XMS REPORT ---
:1945 Author Organization eClinicalWorks Care Team Providers Name Role Phone FLORENCIA BROWNE Provider Role Unavailable Allergies, Adverse Reactions, Alerts Substance Reaction Event Type N.K.D.A. Info Not Available Non Drug Allergy Problems Problem Type Condition Code Onset Dates Condition Statu s Assessment Pharyngitis, unspecified etiology J02.9 Active Problem Interstitial cystitis N30.10 Active Problem Intractable [...] End Status Dosage System Date Date Boniva [facility] [id number] 150 mg orally Active 1 tab( s) once a month imipramine [facility] 95594978354 50 mg orally Active 1 ta b(s) once a day at bedtime Pepcid [facility] 17342344108 20 mg orally Active 1 tab(s ) once as needed Metoprolol [facility] 16542312235 100 mg orally Active 1 t ab(s) Tartrate once a day Ambien [facility] 14901855177 5 mg orally once Oct 04, Active 1 t ab(s) a day (at 2018 bedtime) Imitrex [facility] 99626917342 50 mg orally Oct 04, Active 1 tab(s ) once as needed 2017 for migraine atorvastatin [facility] 41257606438 10MG orally once Active 1 tab(s) a day (at bedtime) Vital Signs Date/Time: Dec 05, 2018 Temperature 96.5 F Weight 155 lbs Height 60.5 in Respiratory Rate 16 /min Pulse 78 /min Blood Pressure Diastolic 70 mm Hg Blood Pressure Systolic 122 mm Hg BMI 29.77 Index Oximetry 99 % Results No Known Results Summary Purpose eClinicalWorks Submission
--- OUTSIDE RECORDS SUMMARY | 2020-04-03 22:58 | XMS REPORT ---
:1945 Author Organization eClinicalWorks Care Team Providers Name Role Phone STANLEY CLEMONS Provider Role Unavailable Allergies, Adverse Reactions, Alerts Substance Reaction Event Type N.K.D.A. 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 Acti ve Assessment Viral gastroenteritis A08.4 Active Assessment Rhinitis, unspecified type J31.0 A ctive Assessment Acute gastritis without hemorrhage, K29.00 Active unspecified gastritis type Assessment Essential hypertension I10 Activ e Assessment Excessive use of nonsteroidal F19.90 Active anti-inflammatory drug (NSAID) Assessment Primary insomnia F51.01 Active Medications Medication Code Code Instructions Start End Status Dosage System Date Date Boniva [facility] [id number] 150 mg orally Active 1 tab( s) once a month Ambien [facility] 54977433635 5 mg orally once Oct 04, Active 1 t ab(s) a day (at 2018 bedtime) Imitrex [facility] 34793917305 50 mg orally Oct 04, Active 1 tab(s ) once as needed 2017 for migraine atorvastatin [facility] 33972163750 10MG orally once Active 1 tab(s) a day (at bedtime) Pepcid [facility] 06501745786 20 mg orally Active 1 tab(s ) once as needed Metoprolol [facility] 17224410730 100 mg orally Active 1 t ab(s) Tartrate once a day imipramine [facility] 83808817831 50 mg orally Active 1 ta b(s) once a day at bedtime Vital Signs Date/Time: Oct 04, 2018 Temperature 98.3 F Weight 152 lbs Height 60.5 in Respiratory Rate 16 /min Pulse 67 /min Blood Pressure Diastolic 70 mm Hg Blood Pressure Systolic 120 mm Hg BMI 29.19 Index Oximetry 98 % Results No Known Results Summary Purpose eClinicalWorks Submission
--- OUTSIDE RECORDS SUMMARY | 2020-04-03 22:58 | XMS REPORT ---
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
--- OUTSIDE RECORDS SUMMARY | 2020-04-03 22:58 | XMS REPORT ---
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
--- OUTSIDE RECORDS SUMMARY | 2020-04-03 22:58 | XMS REPORT ---
[...] Rhinitis, unspecified type J31.0 A ctive Assessment Primary insomnia F51.01 Active Assessment Essential hypertension I10 Activ e Assessment Hypercholesteremia E78.00 Active Problem Essential hypertension I10 Activ e Medications Medication Code System Code Instructions Start End Date Status Dos age Date imipramine [facility] [id number] 50 mg orally Active 1 ta b(s) once a day (at bedtime) Bystolic [facility] 95465777367 10 mg orally May 16, Active 1 tab (s) once a day 2018 Imitrex [facility] 11764562527 50 mg orally Oct 04, Active 1 tab(s ) once as needed 2017 for migraine Pepcid [facility] 00880163010 20 mg orally Active 1 tab(s ) once as needed Boniva [facility] 67808029210 150 mg orally Active 1 tab( s) once a month atorvastatin [facility] 18576502807 10MG orally once Active 1 tab(s) a day (at bedtime) Results No Known Results Summary Purpose eClinicalWorks Submission
--- OUTSIDE RECORDS SUMMARY | 2020-04-03 22:58 | XMS REPORT ---
:1945 Author Organization eClinicalWorks Care Team Providers Name Role Phone JOCELYN GILBERT Provider Role Unavailable Allergies, Adverse Reactions, Alerts Substance Reaction Event Type N.K.D.A. 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 Acti ve Problem Hypercholesteremia E78.00 Active Problem PAC (premature atrial contraction) I49.1 Active Assessment Annual physical exam Z00.00 Active Assessment Encounter for screening mammogram Z12.31 Active for breast cancer Problem Essential hypertension I10 Activ e Problem Interstitial cystitis N30.10 Active Assessment Encounter for immunization Z23 A ctive Assessment Osteoporosis M81.0 Active Assessment Essential hypertension I10 Activ e Assessment Unspecified conductive hearing loss H90.2 Active Assessment Interstitial cystitis N30.10 Active Assessment Osteoporosis screening Z13.820 Activ e Assessment Hypercholesteremia E78.00 Active Assessment Screening for other and unspecified Z13.6 Active cardiovascular conditions Medications Medication Code Code Instructions Start End Status Dosage System Date Date Boniva [facility] 42622632180 150MG orally Active 1 tab(s ) once a month imipramine [facility] 25918365400 50 mg orally Active 1 ta b(s) once a day AMLODIPINE [facility] 98572746960 5 mg orally once Active 1 tab(s) BESYLATE a day Nexium [facility] 09649502083 40 mg orally Active 1 cap(s ) once a day Metoprolol [facility] 45604303275 100 mg orally Active 1 t ab(s) Tartrate once a day atorvastatin [facility] 76389281721 10 mg orally Active 1 tab(s) once a day (at bedtime) Vital Signs Date/Time: February 27, 2018 Temperature 97.2 F Weight 152 lbs Height 60.5 in Respiratory Rate 16 /min Pulse 53 /min Blood Pressure Diastolic 82 mm Hg Blood Pressure Systolic 130 mm Hg BMI 29.19 Index Oximetry 97 % Results No Known Results Immunizations Vaccine Administration Date Pneumovax February 27, 2018 Summary Purpose eClinicalWorks Submission
--- OUTSIDE RECORDS SUMMARY | 2020-04-03 22:58 | XMS REPORT ---
[...] Start End Date Status Dosage System Date AMLODIPINE [facility] 49812687327 5 mg orally once Active 1 tab(s) BESYLATE a day Results No Known Results Summary Purpose eClinicalWorks Submission
--- OUTSIDE RECORDS SUMMARY | 2020-04-03 22:58 | XMS REPORT ---
[...] Start End Status Dosage System Date Date Amitriptyline [facility] 93130909457 10 mg orally June 15, Active 1-2 Hydrochloride once a day (at 2019 tab (s) bedtime) Results No Known Results Summary Purpose eClinicalWorks Submission
--- OUTSIDE RECORDS SUMMARY | 2020-04-03 22:59 | XMS REPORT ---
:1945 Author Organization eClinicalWorks Care Team Providers Name Role Phone STANLEY CLEMONS Provider Role Unavailable Allergies, Adverse Reactions, Alerts Substance Reaction Event Type N.K.D.A. 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 92295522405 40 mg orally Active 1 cap(s ) once a day hydrochlorothiazide [facility] 92249660022 12.5 mg orally Pia A ctive 1 tab(s) once a day [address] [facility] 85206023959 10 mg orally Active 1 tab(s) once a day Metoprolol Tartrate [facility] 99775638730 100 mg orally Ac tive 1 tab(s) once a day AMLODIPINE BESYLATE [facility] 04349582424 5 mg orally Inac tive 1 tab(s) once a day imipramine [facility] 45485003638 50 mg orally 3 Active 1 tab(s) times a day Boniva [facility] 70659622426 150 mg orally Active 1 tab( s) once a month Vital Signs Date/Time: May 01, 2018 Temperature 98.4 F Weight 152 lbs Height 60.5 in Respiratory Rate 16 /min Pulse 59 /min Blood Pressure Diastolic 72 mm Hg Blood Pressure Systolic 110 mm Hg BMI 29.19 Index Oximetry 97 % Results No Known Results Summary Purpose eClinicalWorks Submission
--- OUTSIDE RECORDS SUMMARY | 2020-04-03 22:59 | XMS REPORT ---
:1945 Author Organization eClinicalWorks Care Team Providers Name Role Phone FLORENCIA BROWNE Provider Role Unavailable Allergies, Adverse Reactions, Alerts Substance Reaction Event Type N.K.D.A. Info Not Available Non Drug Allergy Problems Problem Type Condition Code Onset Dates Condition Statu s Assessment Bronchitis J40 Active Problem Interstitial cystitis N30.10 Active Problem [...] End Status Dosage System Date Date Boniva [facility] 30813691199 150 mg orally Active 1 tab( s) once a month Bystolic [place] 65742910237 5 mg orally once Jan 11, Active 1 tab(s) a day 2018 atorvastatin [facility] 64343822123 10MG orally once Active 1 tab(s) a day (at bedtime) Imitrex [facility] 31061317651 50 mg orally Oct 04, Active 1 tab(s ) once as needed 2018 for migraine Pepcid [facility] 86744669429 20 mg orally Active 1 tab(s ) once as needed Tessalon Perles [facility] 99454201690 100 mg orally 28 February Acti ve 1-2 times a day as 2018 cap(s) needed for cough AMLODIPINE [facility] 49667041138 5 mg orally once Active 1 tab(s) BESYLATE a day Vital Signs Date/Time: March 14, 2019 Temperature 96.9 F Weight 154 lbs Height 60.5 in Respiratory Rate 16 /min Pulse 68 /min Blood Pressure Diastolic 60 mm Hg Blood Pressure Systolic 120 mm Hg BMI 29.58 Index Oximetry 96 % Results No Known Results Summary Purpose eClinicalWorks Submission
--- OUTSIDE RECORDS SUMMARY | 2020-04-03 22:59 | XMS REPORT ---
:1945 Author Organization eClinicalWorks Care Team Providers Name Role Phone FLORENCIA BROWNE Provider Role Unavailable Allergies, Adverse Reactions, Alerts Substance Reaction Event Type N.K.D.A. 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 Acti ve Medications Medication Code Code Instructions Start End Date Status Dosage System Date Boniva [facility] 77994787969 150 mg orally Active 1 tab( s) once a month AMLODIPINE [facility] 49576527814 5 mg orally Active 1 tab (s) BESYLATE once a day Pepcid [facility] 55930650110 20 mg orally Active 1 tab(s ) once as needed Bystolic [facility] 99161426168 5 mg orally Jan 11, Active 1 tab(s ) once a day 2018 levofloxacin [facility] 64907183144 500 mg orally February Active 1 tab(s) every 24 hours 2018 Imitrex [facility] 26173988431 50 mg orally Oct 04, Active 1 tab(s ) once as needed 2018 for migraine atorvastatin [facility] 11266152814 10MG orally Active 1 t ab(s) once a day (at bedtime) Vital Signs Date/Time: March 02, 2019 Temperature 97.8 F Weight 154 lbs Height 60.5 in Respiratory Rate 16 /min Pulse 72 /min Blood Pressure Diastolic 70 mm Hg Blood Pressure Systolic 130 mm Hg BMI 29.58 Index Oximetry 98 % Results No Known Results Summary Purpose eClinicalWorks Submission
--- OUTSIDE RECORDS SUMMARY | 2020-04-03 22:59 | XMS REPORT ---
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
--- OUTSIDE RECORDS SUMMARY | 2020-04-03 22:59 | XMS REPORT ---
[...] End Date Status Dos age Date atorvastatin [facility] 06963725614 10MG orally once Active 1 tab(s) a day (at bedtime) Results No Known Results Summary Purpose eClinicalWorks Submission
--- OUTSIDE RECORDS SUMMARY | 2020-04-03 22:59 | XMS REPORT ---
[...] End Status Dosage System Date Date Amitriptyline [facility] 07557280476 10 mg orally June 15, Jul 15, Active 1-2 Hydrochloride once a day (at 2018 2018 tab (s) bedtime) Results No Known Results Summary Purpose eClinicalWorks Submission
--- OUTSIDE RECORDS SUMMARY | 2020-04-03 22:59 | XMS REPORT ---
[...] Start Date End Date Status Dosage Bystolic [facility] 74366657989 5 mg orally once Jan 11, Active 1 tab(s) a day 2019 Results No Known Results Summary Purpose eClinicalWorks Submission
--- OUTSIDE RECORDS SUMMARY | 2020-04-03 23:00 | XMS REPORT ---
[...] ve Problem Interstitial cystitis N30.10 Active Assessment Hypercholesteremia [...] End Status Dosage System Date Date atorvastatin [facility] 69169988546 10MG orally Active 1 t ab(s) once a day (at bedtime) Boniva [facility] 71541014407 150 mg orally Active 1 tab( s) once a month imipramine [facility] 53593811478 50 mg orally Active 1 ta b(s) once a day (at bedtime) Imitrex [facility] 82631938345 50 mg orally Oct 04, Active 1 tab(s ) once as needed 2017 for migraine Pepcid [facility] 43713895950 20 mg orally Active 1 tab(s ) once as needed Amitriptyline [facility] 79400963377 10 mg orally June 15, Active 1-2 Hydrochloride once a day (at 2019 tab (s) bedtime) Bystolic [facility] 16365645246 10 mg orally May 16, Active 1 tab (s) once a day 2018 Results No Known Results Summary Purpose eClinicalWorks Submission
--- OUTSIDE RECORDS SUMMARY | 2020-04-03 23:00 | XMS REPORT ---
[...] End Status Dosage System Date Date Boniva [facility] 29066015409 150 mg orally Active 1 tab( s) once a month Amitriptyline [place] 57971353518 10 mg orally June 15, Active 1-2 Hydrochloride once a day (at 2019 tab (s) bedtime) Pepcid [facility] 42610915758 20 mg orally Active 1 tab(s ) once as needed Bystolic [place] 56118229083 10 mg orally May 16, Active 1 tab (s) once a day 2018 imipramine [place] 96994318377 50 mg orally Active 1 ta b(s) once a day (at bedtime) atorvastatin [facility] 91508021829 10MG orally Active 1 t ab(s) once a day (at bedtime) Imitrex [place] 38182869913 50 mg orally Oct 04, Active 1 tab(s ) once as needed 2018 for migraine Results No Known Results Summary Purpose eClinicalWorks Submission
--- OUTSIDE RECORDS SUMMARY | 2020-04-03 23:00 | XMS REPORT ---
:1945 Author Organization eClinicalWorks Care Team Providers Name Role Phone STANLEY CLEMONS Provider Role Unavailable Allergies, Adverse Reactions, Alerts Substance Reaction Event Type N.K.D.A. 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 Acti ve Problem Hypercholesteremia E78.00 Active Problem PAC (premature atrial contraction) I49.1 Active Assessment Essential hypertension I10 Activ e Assessment Hypercholesteremia E78.00 Active Problem Essential hypertension I10 Activ e Problem Interstitial cystitis N30.10 Active Medications Medication Code Code Instructions Start End Status Dosage System Date Date Boniva [facility] 50014599081 150 mg orally Active 1 tab( s) once a month imipramine [facility] 66255180142 50 mg orally 3 Active 1 tab(s) times a day Metoprolol Tartrate [facility] 93058309062 100 mg orally Ac tive 1 tab(s) once a day hydrochlorothiazide [facility] 17445407650 12.5 mg orally May 01, Active 1 tab(s) once a day 2017 atorvastatin [facility] 89003648651 10MG orally Active 1 t ab(s) once a day (at bedtime) Nexium [facility] 42326350799 20 mh orally Active 1 cap(s ) once a day Vital Signs Date/Time: Jun 30, 2018 Temperature 97.0 F Weight 151 lbs Height 60.5 in Respiratory Rate 16 /min Pulse 66 /min Blood Pressure Diastolic 70 mm Hg Blood Pressure Systolic 132 mm Hg BMI 29.00 Index Oximetry 97 % Results No Known Results Summary Purpose eClinicalWorks Submission
--- OUTSIDE RECORDS SUMMARY | 2020-04-03 23:00 | XMS REPORT ---
[...] Start End Status Dosage System Date Date hydrochlorothiazide [facility] 88086232208 12.5 mg orally January ctive 1 tab(s) once a day 2019 Norvasc [facility] 87040479971 5 mg orally Jan 24, Active 1 tab(s) once a day 2019 Results No Known Results Summary Purpose eClinicalWorks Submission
--- OUTSIDE RECORDS SUMMARY | 2020-04-03 23:00 | XMS REPORT ---
[...] End Date Status Dosage System Date AMLODIPINE [facility] 05800851639 5 mg orally once Active 1 tab(s) BESYLATE a day Results No Known Results Summary Purpose eClinicalWorks Submission
--- OUTSIDE RECORDS SUMMARY | 2020-04-03 23:00 | XMS REPORT ---
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 Acti ve Problem Essential hypertension I10 Activ e Medications Medication Code Code Instructions Start End Status Dosage System Date Date Pepcid [facility] 86975101799 20 mg orally Active 1 tab(s ) once as needed [facility] 53541578382 5 mg orally Inactive 1 tab( s) once a day Boniva [facility] 14725750522 150 mg orally Active 1 tab( s) once a month Imitrex [facility] 27560072864 50 mg orally Oct 04, Active 1 tab(s ) once as needed 2017 for migraine imipramine [facility] 25567119925 50 mg orally Active 1 ta b(s) once a day (at bedtime) TraZODONE [facility] 54157907324 50 mg orally May 16Sep 13, Active 1-2 Hydrochloride qhs as needed 2018 2018 tab( s) atorvastatin [facility] 63150732860 10MG orally Active 1 t ab(s) once a day (at bedtime) [facility] 75686433234 10 mg orally May 16, Active 1 tab (s) once a day 2018 Vital Signs Date/Time: May 16, 2019 Temperature 97/6 F Weight 155 lbs Height 60.5 in Respiratory Rate 16 /min Pulse 72 /min Blood Pressure Diastolic 76 mm Hg Blood Pressure Systolic 130 mm Hg BMI 29.77 Index Oximetry 97 % Results No Known Results Summary Purpose eClinicalWorks Submission
--- OUTSIDE RECORDS SUMMARY | 2020-04-03 23:00 | XMS REPORT ---
[...] Start End Date Status Dos age Date prednisone [facility] 37479127897 20 mg orally once March 12, March 19, Act elsie 1 tab(s) a day 2018 2018 Results No Known Results Summary Purpose eClinicalWorks Submission
--- OUTSIDE RECORDS SUMMARY | 2020-04-03 23:01 | XMS REPORT ---
[...] Start Date End Date Status Dosage Boniva [facility] 99655471325 150 mg orally Active 1 tab( s) once a month Results No Known Results Summary Purpose eClinicalWorks Submission
--- OUTSIDE RECORDS SUMMARY | 2020-04-03 23:01 | XMS REPORT ---
:1945 Author Organization eClinicalWorks Care Team Providers Name Role Phone STANLEY CLEMONS Provider Role Unavailable Allergies, Adverse Reactions, Alerts Substance Reaction Event Type N.K.D.A. Info Not Available Non Drug Allergy Problems Problem Type Condition Code Onset Dates Condition Statu s Assessment Essential hypertension I10 Activ e Problem Interstitial cystitis N30.10 Active Assessment Hypercholesteremia E78.00 Active Assessment Encounter for screening mammogram Z12.31 Active for breast cancer Problem Intractable migraine without status G43.919 Active migrainosus, unspecified migraine type Problem Rhinitis, unspecified type J31.0 A ctive Problem Primary insomnia F51.01 Active Problem Hypercholesteremia E78.00 Active Problem Essential hypertension I10 Activ e Problem PAC (premature atrial contraction) I49.1 Active Problem 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 Acti ve Medications Medication Code Code Instructions Start End Status Dosage System Date Date Imitrex [facility] 98653073813 50 mg orally Oct 04, Active 1 tab(s ) once as needed 2017 for migraine Pepcid [facility] 65786939175 20 mg orally Active 1 tab(s ) once as needed Metoprolol [facility] 13958289201 100 mg orally Active 1 t ab(s) Tartrate once a day Boniva [facility] 04282726242 150 mg orally Active 1 tab( s) once a month atorvastatin [facility] 14476510591 10MG orally once Active 1 tab(s) a day (at bedtime) Ambien [facility] 70641394459 5 mg orally once Oct 04, Active 1 t ab(s) a day (at 2017 bedtime) imipramine [facility] 86147590966 50 mg orally Active 1 ta b(s) once a day at bedtime Results No Known Results Summary Purpose eClinicalWorks Submission
--- OUTSIDE RECORDS SUMMARY | 2020-04-03 23:01 | XMS REPORT ---
[...] End Status Dosage System Date Date Pepcid [facility] 56965758360 20 mg orally Active 1 tab(s ) once as needed atorvastatin [facility] 60921014653 10MG orally Active 1 t ab(s) once a day (at bedtime) Nexium [facility] 25458708341 20 mh orally Active 1 cap(s ) once a day Boniva [facility] 31993232882 150 mg orally Active 1 tab( s) once a month hydrochlorothiazide [facility] 64008179006 12.5 mg orally May 01, Active 1 tab(s) once a day 2017 Metoprolol Tartrate [facility] 42634504924 100 mg orally Ac tive 1 tab(s) once a day imipramine ND 90854107563 50 mg orally Active 1 ta b(s) once a day at bedtime Results No Known Results Summary Purpose eClinicalWorks Submission
--- OUTSIDE RECORDS SUMMARY | 2020-04-03 23:01 | XMS REPORT ---
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 63141719738 50 mg orally once Oct 04, Active 1 tab(s) as needed for 2018 migraine Results No Known Results Summary Purpose eClinicalWorks Submission
--- OUTSIDE RECORDS SUMMARY | 2020-04-03 23:01 | XMS REPORT ---
[...] Status Dosage System Date Date Boniva [facility] 24416609756 150 mg orally Active 1 tab( s) once a month imipramine [facility] 90107719332 50 mg orally Active 1 ta b(s) once a day (at bedtime) atorvastatin [facility] 53514980891 10MG orally Active 1 t ab(s) once a day (at bedtime) Imitrex [facility] 69654400596 50 mg orally Oct 04, Active 1 tab(s ) once as needed 2017 for migraine TraZODONE ND 63137748220 50 mg orally May 16, Sep 13, Active 1-2 Hydrochloride qhs as needed 2018 2018 tab( s) Bystolic ND 71335109315 10 mg orally May 16, Active 1 tab (s) once a day 2018 Pepcid [facility] 79148698158 20 mg orally Active 1 tab(s ) once as needed Results No Known Results Summary Purpose eClinicalWorks Submission
--- OUTSIDE RECORDS SUMMARY | 2020-04-03 23:01 | XMS REPORT ---
[...] Start End Date Status Dos age Date Bystolic [facility] 95619428967 10 mg orally May 16, Active 1 tab (s) once a day 2018 temazepam [facility] 41190437352 15 mg orally May 23, Active 1 ca p(s) once a day (at 2019 bedtime) Pepcid [facility] 86450669550 20 mg orally Active 1 tab(s ) once as needed Imitrex [facility] 18963282011 50 mg orally Oct 04, Active 1 tab(s ) once as needed 2018 for migraine Boniva [facility] 05766267961 150 mg orally Active 1 tab( s) once a month imipramine [facility] 85772852216 50 mg orally Active 1 ta b(s) once a day (at bedtime) atorvastatin [facility] 93531796390 10MG orally once Active 1 tab(s) a day (at bedtime) Results No Known Results Summary Purpose eClinicalWorks Submission
--- OUTSIDE RECORDS SUMMARY | 2020-04-03 23:01 | XMS REPORT ---
[...] Status Dosage System Date Date Boniva [facility] 99862763043 150 mg orally Active 1 tab( s) once a month Metoprolol [facility] 02619536446 100 mg orally Active 1 t ab(s) Tartrate once a day atorvastatin [facility] 87085375138 10MG orally once Active 1 tab(s) a day (at bedtime) imipramine [facility] 67443550760 50 mg orally Active 1 ta b(s) once a day at bedtime Ambien [facility] 99290024258 5 mg orally once Oct 04, Active 1 t ab(s) a day (at 2018 bedtime) Imitrex [facility] 21370438413 50 mg orally Oct 04, Active 1 tab(s ) once as needed 2018 for migraine Pepcid [facility] 20734799763 20 mg orally Active 1 tab(s ) once as needed Results No Known Results Summary Purpose eClinicalWorks Submission
--- OUTSIDE RECORDS SUMMARY | 2020-04-03 23:01 | XMS REPORT ---
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
--- OUTSIDE RECORDS SUMMARY | 2020-04-03 23:02 | XMS REPORT ---
:1945 Author Organization eClinicalWorks Care Team Providers Name Role Phone STANLEY CLEMONS Provider Role Unavailable Allergies, Adverse Reactions, Alerts Substance Reaction Event Type N.K.D.A. Info Not Available Non Drug Allergy Encounters Encounter Location Date ESTABLISHED PT: [facility] Jul 07, 2016 [facility] Dec 23, 2016 NEW PT [facility] February 25, 2014 FOLLOW-UP: Injection to the peroneus brevis Rt [facility] March 18, 2014 Problems Problem Type Condition ICD-9 Code Onset Dates Condition Statu s Assessment Osteoporosis M81.0 Active Assessment Weight gain R63.5 Active Problem Hypercholesteremia E78.00 Active Problem Interstitial cystitis N30.10 Active Problem Essential hypertension I10 Activ e Assessment Hypercholesteremia E78.00 Active Assessment Interstitial cystitis N30.10 Active Problem Osteoporosis M81.0 Active Assessment Essential hypertension I10 Activ e Medications Medication Code System Code Instructions Start Date End Date Status Dosage alendronate MULTUM 66433 70 mg orally once Active 1 tab(s) a week imipramine MULTUM 40838 50 mg orally once Active 1 t ab(s) a day metoprolol MULTUM 88591 100 mg orally Active 1 tab(s ) once a day atorvastatin MULTUM 14311 10 mg orally once Active 1 tab(s) a day (at bedtime) AMLODIPINE MULTUM 62553 5 mg orally once Active 1 ta b(s) BESYLATE a day Nexium MULTUM 63868 40 mg orally once Active 1 cap( s) a day Social History Social History Element Qualifiers Date Reported Occupation: . Retired Dec 27, 2016 Caffeine: yes. frequency:, 1 cup of coffee/soda/t ea per Dec 27, 2016 day Children: . Yes, 1 daughter Dec 27, 2016 Exercise: yes. 3 x per week Dec 27, 2016 Pets: . cats: dogs: 1 Dec 27, 2016 Drug use: no. Dec 27, 2016 Sexually active: yes. Dec 27, 2016 Marital Status: . Dec 27, 2016 Tobacco Use: . Are you a: never smoker Dec 27, 2016 Alcohol Use: . Status: Never Drink Dec 27, 2016 Travel ouside [place]: no. Dec 27, 2016 Smoke Exposure: . Second Hand Smoke Exposure: Yes [place] Dec 27, 2016 Occup. exposure: none. Dec 27, 2016 Vital Signs Date/Time: Dec 23, 2016 Temperature 97.7 F Weight 152 lbs Height 61 in Respiratory Rate 16 /min Blood Pressure Diastolic 80 mm Hg Blood Pressure Systolic 148 mm Hg Oximetry 98 % Summary Purpose eClinicalWorks Submission
--- OUTSIDE RECORDS SUMMARY | 2020-04-03 23:02 | XMS REPORT ---
:1945 Author Organization eClinicalWorks Care Team Providers Name Role Phone STANLEY CLEMONS Provider Role Unavailable Encounters Encounter Location Date FOLLOW-UP: Injection to the peroneus brevis Rt [facility] March 18, 2014 ESTABLISHED PT: [facility] Jul 07, 2016 [facility] Dec 23, 2016 nl mammo [facility] Dec 31, 2016 NEW PT [facility] February 25, 2014 Problems Problem Type Condition ICD-9 Code Onset Dates Condition Statu s Problem Hypercholesteremia E78.00 Active Problem Interstitial cystitis N30.10 Active Problem Essential hypertension I10 Activ e Problem Osteoporosis M81.0 Active Social History Social History Element Qualifiers Date [...] . Second Hand Smoke Exposure: Yes [place] Dec 27, 2016 Occup. exposure: none. Dec 27, 2016 Summary Purpose eClinicalWorks Submission
--- OUTSIDE RECORDS SUMMARY | 2020-04-03 23:02 | XMS REPORT ---
:1945 Author Organization eClinicalWorks Care Team Providers Name Role Phone Paul Crawford Provider Role Unavailable Encounters Encounter Location Date NEW PT [facility] February 25, 2014 FOLLOW-UP: Injection to the peroneus brevis Rt [facility] March 18, 2014 Problems Problem Type Condition ICD-9 Code Onset Dates Condition Statu s Problem Fracture-metatarsal 825.25 Active Problem Ankle instability/hypermobility 718.87 Active Problem Tenosynovitis of foot and ankle 727.06 Active Assessment Ankle instability/hypermobility 718.87 Active Assessment Tenosynovitis of foot and ankle 727.06 Active Assessment Fracture-metatarsal 825.25 Active Social History Social History Element Qualifiers Date Reported Tobacco Use: . Are you a:: never smoker March 18 014 Vital Signs Date/Time: March 18, 2014 Weight 148 lbs Cardiac Monitoring Heart Rate 68 Beats per Minute Blood Pressure Diastolic 80 mm Hg Blood Pressure Systolic 157 mm Hg Summary Purpose eClinicalWorks Submission
--- OUTSIDE RECORDS SUMMARY | 2020-04-03 23:02 | XMS REPORT ---
:1945 Author Organization eClinicalWorks Care Team Providers Name Role Phone STANLEY CLEMONS Provider Role Unavailable Allergies, Adverse Reactions, Alerts Substance Reaction Event Type N.K.D.A. Info Not Available Non Drug Allergy Encounters Encounter Location Date AWE F/U [facility] Jan 17, 2017 NEW PT [facility] February 25, 2014 FOLLOW-UP: Injection to the peroneus brevis Rt [facility] March 18, 2014 ESTABLISHED PT: [facility] Jul 07, 2016 [facility] EST CARE [facility] Dec 23, [address] [facility] Dec 31, [address] [facility] Dec 30, 2016 Problems Problem Type Condition ICD-9 Code Onset Dates Condition Statu s Assessment Interstitial cystitis N30.10 Active Problem Hypercholesteremia E78.00 Active Problem Interstitial cystitis N30.10 Active Problem Essential hypertension I10 Activ e Assessment Hypercholesteremia E78.00 Active Assessment Osteoporosis M81.0 Active Problem Osteoporosis M81.0 Active Assessment Essential hypertension I10 Activ e Medications Medication Code System Code Instructions Start End Date Status Dos age Date alendronate MULTUM 68108 70 mg orally Inactive 1 tab( s) once a week Nexium MULTUM 73783 40 mg orally Active 1 cap(s) once a day imipramine MULTUM 65134 50 mg orally Active 1 tab(s) once a day atorvastatin MULTUM 49055 10 mg orally Active 1 tab( s) once a day (at bedtime) AMLODIPINE MULTUM 56283 5 mg orally once Active 1 ta b(s) BESYLATE a day Boniva MULTUM 82352 150 mg orally Jan 17, Active 1 tab(s) once a month 2016 metoprolol MULTUM 89571 100 mg orally Active 1 tab(s ) once a day Social History Social History Element Qualifiers Date Reported Occupation: . Retired Jan 17, 2017 Caffeine: yes. frequency:, 1 cup of coffee/soda/t ea per Jan 17, 2017 day Children: . Yes, 1 daughter Jan 17, [...] Exposure: . Second Hand Smoke Exposure: Yes [place] Jan 17, 2017 Occup. exposure: none. Jan 17, 2017 Family history Qualifier Description Comment Date Reported Maternal Grand Mother Comment not available Jan 17, 2017 Paternal Grand Mother Comment not available Jan 17, 2017 Siblings alive Comment not available Jan 17 17 Maternal Grand Father Comment not available Jan 17, 2017 Children alive Comment not available Jan 17 17 Maternal aunt Comment not available Jan 17 17 Father smoker Jan 17, 2017 Paternal Grand Father Comment not available Jan 17, 2017 Paternal uncle Comment not available Jan 17 17 Mother Comment not available Jan 17 17 Paternal aunt Comment not available Jan 17 17 Maternal uncle Comment not available Jan 17 17 Vital Signs Date/Time: Jan 17, 2017 Temperature 98.4 F Weight 151.6 lbs Height 60 in Respiratory Rate 16 /min Blood Pressure Diastolic 78 mm Hg Blood Pressure Systolic 130 mm Hg Oximetry 97 % Summary Purpose eClinicalWorks Submission
--- OUTSIDE RECORDS SUMMARY | 2020-04-03 23:02 | XMS REPORT ---
:1945 Author Organization eClinicalWorks Care Team Providers Name Role Phone YvettePaul Provider Role Unavailable Allergies, Adverse Reactions, Alerts Substance Reaction Event Type N.K.D.A. 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 Are you a:: never smoker Jul 07 6 Family history Qualifier Description Comment Date Reported Maternal Grandmother Comment not available Jun 282015 Paternal Grandmother Comment not available Jun 282015 Siblings Comment not available Jul 07 Maternal Grandfather Comment not available Jun [id number] Children Comment not available Jul 07 Father Comment not available Jul 07 Paternal Grandfather Comment not available Jun [id number] Mother Comment not available Jul 07 16 Other: Comment not available Jul 07 16 Vital Signs Date/Time: Jul 07, 2016 Weight 148 lbs Height 62 in Cardiac Monitoring Heart Rate 58 /min Blood Pressure Diastolic 67 mm Hg Blood Pressure Systolic 125 mm Hg Summary Purpose eClinicalWorks Submission
--- OUTSIDE RECORDS SUMMARY | 2020-04-03 23:02 | XMS REPORT ---
:1945 Author Organization eClinicalWorks Care Team Providers Name Role Phone Paul Crawford Provider Role Unavailable Encounters Encounter Location Date NEW PT [facility] February 25, 2014 Problems Problem Type [...] Use: . Are you a:: never smoker February 25 014 Vital Signs Date/Time: February 25, 2014 Weight 148 lbs Cardiac Monitoring Heart Rate 69 Beats per Minute Blood Pressure Diastolic 70 mm Hg Blood Pressure Systolic 130 mm Hg Results X ray : Foot, right Summary Purpose eClinicalWorks Submission
--- OUTSIDE RECORDS SUMMARY | 2020-04-03 23:02 | XMS REPORT ---
:1945 Author Organization eClinicalWorks Care Team Providers Name Role Phone STANLEY CLEMONS Provider Role Unavailable Encounters Encounter Location Date NEW PT [facility] February 25, 2014 FOLLOW-UP: Injection to the peroneus brevis Rt [facility] March 18, 2014 ESTABLISHED PT: [facility] Jul 07, 2016 [facility] EST C[facility] Dec 23, 2016 nl mammo [facility] Dec 31, 2016 DEXA REPORT [facility] Dec 30, 2016 Problems Problem Type Condition [...]
--- OUTSIDE RECORDS SUMMARY | 2020-04-03 23:03 | XMS REPORT | Summary of Care ---
:1945 Author Organization [facility] Address [address] [place] [address] Care Team Providers Name Role Phone PAULO VALENTINE Unavailable Unavailable Radha VALENTINE Unavailable Unavailable FANTASMA VALENTINE [place] Unavailable Unavailable Unavailable Unavailable Unavailable Functional Status Name Dates Details Functional status health issues are not documented Status: Name Dates Details Cognitive status health issues are not documented Status: Problems Name Dates Details Sprain of ulnar collateral ligament (841.1, S53.449A) Status: Active Closed displaced fracture of second meta tarsal bone of left foot, initial encounter (825.25, S92.322A) Status: Active Stress fracture of left ankle, initial encounter (733.95, M8 4.372A) Status: Active Knee pain, left (719.46, M25.562) Status : Active Arthritis of both knees (716.96, M17.0) Status: Active Arthritis of knee, left (716.96, M17.12) Status: Active Left foot pain (729.5, M79.672) Status: Active Closed fracture of fifth metatarsal bone, right, initial enc ounter Status: Active Closed displaced fracture of surgical neck of left humerus ( 812.01, S42.212A) Status: Active Fracture Of Phalanx Of Thumb (816.00) St atus: Active Peroneal tendinitis of right lower extremity (726.79, M76.71 ) Status: Active Knee pain, right (719.46, M25.561) Statu s: Active Right foot pain (729.5, M79.671) Status: Active Medications Name Dates Details Bystolic 10 MG Oral Tablet Refills: 0 Active Amitriptyline HCl - 10 MG Oral Tablet Refills: 0 Active Imipramine HCl - 50 MG Oral Tablet Refills: 0 Active Atorvastatin Calcium 10 MG Oral Tablet Refills: 0 Active Allergies and Adverse Reactions Name Dates Details No Known Allergies (Allergy) Status: Act elsie Past Medical History Name Dates Details History of High blood pressure (401.9, I10) Status: Resolved History of Osteoporosis (733.00, M81.0) Status: Resolved Procedures Procedure Dates Details History of Shoulder Surgery Completed Immunization Name Dates Details Immunizations not documented Social History Name Dates Details - Status: Name Dates Details Never smoker Vital Signs Date Test Result Details No Known Vitals to report Results Date Description Value Details [id number] [U] XRAY KNEE 4 OR MORE VWS LEFT 62078 XR KNEE 4 OR MORE VWS LEFT Images acquired, not reported on this accession number. Plan of Care Name Dates Details Planned Observations Planned Goals not documented Planned Encounters Appointment; MARIELOS MEEK M.D. On: 31-Dec-2019 14 :15 Instructions Name Dates Details Instructions not documented Encounters Appointment; RADHA FALLON M.D. On: 12-Jan-2018 13: 45 Encounter Diagnosis: Problem not documented Appointment; OSCAR CAUSEY M.D. On: 18-Jul-2019 10: 30 Encounter Diagnosis: Problem not documented Appointment; MARIELOS MEEK M.D. On: 30-Nov-2019 13 :30 Encounter Diagnosis: Problem not documented
--- OUTSIDE RECORDS SUMMARY | 2020-04-03 23:03 | XMS REPORT ---
:1945 Author Organization [facility] Address [address] [place] [address] Dr. Bradshaw [address] [place] [id number] Care Team Providers Name Role Phone MARIELOS MEEK M.D. Unavailable Unavailable OSCAR CAUSEY M.D. Unavailable Unavailable RADHA FALLON M.D. Unavailable Unavailable Problems Condition Condition Condition Status Onset Resolution Last Treatin g Comments Name Details Category Date Date Treatment Clinician Date History of History of Problem Resolve High blood High blood d pressure pressure History of History of Problem Resolve Osteoporosi Osteoporosi d s s Fracture Of Fracture Of Problem Active Phalanx Of Phalanx Of Thumb Thumb Sprain of Sprain of Problem Active ulnar ulnar collateral collateral ligament ligament Closed Closed Problem Active displaced displaced fracture of fracture of surgical surgical neck of neck of left left humerus humerus Closed Closed Problem Active fracture of fracture of fifth fifth metatarsal metatarsal bone, bone, right, right, initial initial encounter encounter Right foot Right foot Problem Active pain pain Closed Closed Problem Active displaced displaced fracture of fracture of second second metatarsal metatarsal bone of bone of left foot, left foot, initial initial encounter encounter Stress Stress Problem Active fracture of fracture of left ankle, left ankle, initial initial encounter encounter Peroneal Peroneal Problem Active tendinitis tendinitis of right of right lower lower extremity extremity Knee pain, Knee pain, Problem Active right right Arthritis Arthritis Problem Active of knee, of knee, left left Allergies, Adverse Reactions, Alerts This patient has no known allergies or adverse reactions. Medications Ordered Filled Start Stop Current Ordering Indication Dosage Frequency Signature Comments Components Medication Medication Date Date Medication? Clinician (SIG) Name Name Bystolic 10 Bystolic 10 Yes MG Oral MG Oral Tablet Tablet Amitriptyli Amitriptyli Yes ne HCl - 10 ne HCl - 10 MG Oral MG Oral Tablet Tablet Imipramine Imipramine Yes HCl - 50 MG HCl - 50 MG Oral Tablet Oral Tablet Atorvastati Atorvastati Yes n Calcium n Calcium 10 MG Oral 10 MG Oral Tablet Tablet Vital Signs Vital Name Observation Time Observation Value Comments Height 2019-07-18 12:02:00 61 [in_us] Weight 2019-07-18 12:02:00 145 [lb_av] Procedures and Interventions Procedure Date / Time Performed Performing Clinici an [U] XRAY KNEE 4 OR MORE VWS LEFT [id number] 2019-11-27 00:00:00 History of Shoulder Surgery Plan of Care Planned Activity Planned Date Comments Encounters Start End Encounter Admission Attending Care Care Encounter Date/Time Date/Time Type Type Clinicians Facility Department ID 2020-01-07 2020-01-07 Appointment [facility] [id number] 15:15:00 15:15:00 ; MARIELOS MEEK - EDISON ARCEO M.D. M.D. 2019-12-28 2019-12-28 Appointment [facility] [id number] 14:15:00 14:15:00 ; MARIELOS MEEK STEPHEN, M.D. M.D. 2019-11-30 2019-11-30 Appointment [facility] [id number] 13:30:00 13:30:00 ; MARIELOS MEEK - ATH Katy STEPHEN, M.D. M.D. 2019-07-18 2019-07-18 Appointment [facility] [id number] 10:30:00 10:30:00 ; Marie MOORE ADAM, M.D. 2018-01-12 2018-01-12 Appointment [facility] [id number] 13:45:00 13:45:00 ; RADHA FALLON RICHARD, M.D. M.D. 2017-12-01 2017-12-01 Appointment [facility] [id number] 13:45:00 13:45:00 ; RADHA FALLON RICHARD, M.D. M.D. 2017-10-13 2017-10-13 Appointment [facility] [id number] 14:00:00 14:00:00 ; RADHA FALLON RICHARD, M.D. M.D. 2017-09-08 2017-09-08 Appointment [facility] [id number] 15:00:00 15:00:00 ; RADHA FALLON RICHARD, M.D. M.D. Results Test Description Test Time Test Comments Text Results Atomic Results Result Comments [U] XRAY KNEE [address] [facility] 2019-11-30 13:23:00 Images acquired, not reported on LEFT [id number] this accession number.
--- OUTSIDE RECORDS SUMMARY | 2020-04-03 23:03 | XMS REPORT ---
:1945 Author Organization [employer] Care Team Providers Name Role Phone JOCELYN GILBERT Provider Role Unavailable Allergies, Adverse Reactions, Alerts Substance Reaction Event Type N.K.D.A. Info Not Available Non Drug Allergy Encounters Encounter Location Date AWE F/U [facility] Jan 17, 2017 awe/fasting [facility] Dec 27, 2016 NEW PT [facility] February 25, 2014 FOLLOW-UP: Injection to the peroneus brevis Rt [facility] March 18, 2014 [employer] EST CARE [facility] Dec 23, 2016 nl mammo [facility] Dec 31, 2016 DEXA REPORT [facility] Dec 30, 2016 ESTABLISHED PT: [facility] Jul 07, 2016 Problems Problem Type Condition ICD-9 Code Onset Dates Condition Statu s Assessment Special screening for other Z13.89 Active specified conditions Assessment Colon cancer screening Z12.11 Activ e Assessment Unspecified conductive hearing H90.2 Active loss Problem Hypercholesteremia E78.00 Active Problem Interstitial cystitis N30.10 Active Problem Essential hypertension I10 Activ e Assessment Respiratory abnormality J98.9 Acti ve Assessment Encounter for screening Z12.31 Acti ve mammogram for breast cancer Problem Osteoporosis M81.0 Active Assessment Annual physical exam Z00.00 Active Assessment Osteoporosis M81.0 Active Assessment Interstitial cystitis N30.10 Active Assessment Hypercholesteremia E78.00 Active Assessment Essential hypertension I10 Activ e Medications Medication Code System Code Instructions Start Date End Date Status Dosage AMLODIPINE MULTUM 60888 5 mg orally once Active 1 ta b(s) BESYLATE a day alendronate MULTUM 85566 70 mg orally once Active 1 tab(s) a week metoprolol MULTUM 06869 100 mg orally Active 1 tab(s ) once a day imipramine MULTUM 92782 50 mg orally once Active 1 t ab(s) a day atorvastatin MULTUM 48416 10 mg orally once Active 1 tab(s) a day (at bedtime) Nexium MULTUM 53730 40 mg orally once Active 1 cap( [...] available Jan 17 17 Vital Signs Date/Time: Dec 27, 2016 Temperature 97.0 F Weight 152.0 lbs Height 61 in Respiratory Rate 16 /min Blood Pressure Diastolic 92 mm Hg Blood Pressure Systolic 170 mm Hg Oximetry 97 % Summary Purpose eClinicalWorks Submission
--- OUTSIDE RECORDS SUMMARY | 2020-04-03 23:03 | XMS REPORT | Summary of Care ---
:1945 Author Organization [facility] Address [address] [place] [address] Care Team Providers Name Role Phone PAULO VALENTINE Unavailable Unavailable Radha VALENTINE Unavailable Unavailable [facility] [place] Unavailable Unavailable Unavailable Unavailable Unavailable Functional Status Name Dates Details Functional status health issues are not documented Status: Name Dates Details Cognitive status health issues are not documented Status: Problems Name Dates Details Fracture Of Phalanx Of Thumb (816.00) St atus: Active Sprain of ulnar collateral ligament (841.1, S53.449A) Status: Active Closed displaced fracture of surgical neck of left humerus ( 812.01, S42.212A) Status: Active Closed fracture of fifth metatarsal bone, right, initial enc ounter Status: Active Left foot pain (729.5, M79.672) Status: Active Closed displaced fracture of second meta tarsal bone of left foot, initial encounter (825.25, S92.322A) Status: Active Stress fracture of left ankle, initial encounter (733.95, M8 4.372A) Status: Active Right foot pain (729.5, M79.671) Status: Active Peroneal tendinitis of right lower extremity (726.79, M76.71 ) Status: Active Knee pain, left (719.46, M25.562) Status : Active Knee pain, right (719.46, M25.561) Statu s: Active Arthritis of both knees (716.96, M17.0) Status: Active Arthritis of knee, left (716.96, M17.12) Status: Active Medications Name Dates Details Bystolic [...] to report Results Date Description Value Details [id number] [U] XRAY KNEE 4 OR MORE VWS LEFT 21581 XR KNEE 4 OR MORE VWS LEFT Images acquired, not reported on this accession number. Plan of Care Name Dates Details Planned Observations Planned Goals not documented Instructions Name Dates Details Instructions not documented Encounters Appointment; RADHA FALLON M.D. On: 12-Jan-2018 13: 45 Encounter Diagnosis: Problem not documented Appointment; OSCAR CAUSEY M.D. On: 18-Jul-2019 10: 30 Encounter Diagnosis: Problem not documented Appointment; MARIELOS MEEK M.D. On: 30-Nov-2019 13 :30 Encounter Diagnosis: Problem not documented
--- OUTSIDE RECORDS SUMMARY | 2020-04-03 23:04 | XMS REPORT | Summary of Care ---
:1945 Author Organization [facility] Address [address] [place] [address] Care Team Providers Name Role Phone PAULO VALENTINE Unavailable Unavailable Radha VALENTINE Unavailable Unavailable [facility] [place] Unavailable Unavailable Unavailable Unavailable Unavailable Functional Status Name Dates Details Functional status health issues are not documented Status: Name Dates Details Cognitive status health issues are not documented Status: Problems Name Dates Details Closed displaced fracture of second meta tarsal bone of left foot, initial encounter (825.25, S92.322A) Status: Active Stress fracture of left ankle, initial encounter (733.95, M8 4.372A) Status: Active Knee pain, left (719.46, M25.562) Status : Active Left foot pain (729.5, M79.672) Status: Active Closed fracture of fifth metatarsal bone, right, initial enc ounter Status: Active Closed displaced fracture of surgical neck of left humerus ( 812.01, S42.212A) Status: Active Sprain of ulnar collateral ligament (841.1, S53.449A) Status: Active Fracture Of Phalanx Of Thumb (816.00) St atus: Active Knee pain, right (719.46, M25.561) Statu s: Active Peroneal tendinitis of right lower extremity (726.79, M76.71 ) Status: Active Right foot pain (729.5, M79.671) Status: Active Arthritis of knee, left (716.96, M17.12) Status: Active Arthritis of both knees (716.96, M17.0) Status: Active Medications Name Dates Details Bystolic [...] to report Results Date Description Value Details [id number] [U] XRAY KNEE 4 OR MORE VWS LEFT 14385 XR KNEE 4 OR MORE VWS LEFT [...] 13 :30 Encounter Diagnosis: Problem not documented Appointment; MARIELOS MEEK M.D. On: 28-Dec-2019 1 4:15 Encounter Diagnosis: Problem not documented
--- OUTSIDE RECORDS SUMMARY | 2020-04-03 23:04 | XMS REPORT | Summary of Care ---
:1945 Author Organization [facility] Address [address] [place] [address] Care Team Providers Name Role Phone PAULO VALENTINE Unavailable Unavailable Radha VALENTINE Unavailable Unavailable [facility] [place] Unavailable Unavailable Unavailable Unavailable Unavailable Functional Status [...] ounter Status: Active Closed displaced fracture of second meta tarsal bone of left foot, initial encounter (825.25, S92.322A) Status: Active Stress fracture of left ankle, initial encounter (733.95, M8 4.372A) Status: Active Knee pain, left (719.46, M25.562) Status : Active Arthritis of both knees (716.96, M17.0) Status: Active Arthritis of knee, left (716.96, M17.12) Status: Active Knee pain, right (719.46, M25.561) Statu s: Active Right foot pain (729.5, M79.671) Status: Active Left foot pain (729.5, M79.672) Status: Active Peroneal tendinitis of right lower extremity (726.79, M76.71 ) Status: Active Medications Name Dates Details Amitriptyline HCl - 10 MG Oral Tablet Refills: 0 Active Imipramine HCl - 50 MG Oral Tablet Refills: 0 Active Atorvastatin Calcium 10 MG Oral Tablet Refills: 0 Active Bystolic 10 MG Oral Tablet Refills: 0 [...] to report Results Date Description Value Details [id number] [U] XRAY KNEE 4 OR MORE VWS LEFT 21771 XR KNEE 4 OR MORE VWS LEFT [...]
--- OUTSIDE RECORDS SUMMARY | 2020-04-03 23:04 | XMS REPORT | Summary of Care ---
:1945 Author Name [facility] Address Unavailable Unavailable , Care Team Providers Name Role Phone [facility] Unavailable Unavailable PAULO VALENTINE Unavailable Unavailable Radha VALENTINE Unavailable Unavailable [facility] [place] Unavailable Unavailable Unavailable Unavailable Unavailable Functional Status [...] to report Results Date Description Value Details Results not documented Plan of Care Name Dates Details Planned Observations Planned Goals not documented Interventions Provided PlanPatient Education/Instructions: Patient education and reassurance was provided for better understanding of the diagnosis and treatment plan. An opportunity to ask questions was provided. Patient/caregiver was instructed to contact the office or emergency room for worsening pain, swelling, and/or any concerns. Understanding was acknowledged. Significant time was spent educating and counseling the patient. NSAIDs and ICE application for continued pain and swelling Follow Up: Please schedule an appointment as needed for any future problems or concerns. HEP.modified activity Instructions Name Dates Details Instructions not documented Encounters Appointment; RADHA FALLON M.D. On: 12-Jan-2018 13: 45 Encounter Diagnosis: Problem not documented Appointment; OSCAR CAUSEY M.D. On: 18-Jul-2019 10: 30 Encounter Diagnosis: Problem not documented Appointment; MARIELOS MEEK M.D. On: 30-Nov-2019 13 :30 Encounter Diagnosis: Problem not documented Appointment; MARIELOS MEEK M.D. On: 28-Dec-2019 1 4:15 Encounter Diagnosis: Problem not documented Appointment; MARIELOS MEEK M.D. On: 07-Jan-2020 1 5:15 Encounter Diagnosis: Problem not documented
--- OUTSIDE RECORDS SUMMARY | 2020-04-03 23:04 | XMS REPORT | Summary of Care ---
:1945 Author Name [facility] Address Unavailable Unavailable , Care Team Providers Name Role Phone [facility] Unavailable Unavailable PAULO VALENTINE Unavailable Unavailable Radha VALENTINE Unavailable Unavailable [facility] [place] Unavailable Unavailable Unavailable Unavailable Unavailable Functional Status [...] Observations Planned Goals not documented Interventions Provided PlanCompleted at Today's Appointment: Injection Patient Education/Instructions: Patient education and reassurance was provided [...] Encounter Diagnosis: Problem not documented Appointment; MARIELOS EMEK M.D. On: 30-Nov-2019 13 :30 Encounter Diagnosis: Problem not documented Appointment; MARIELOS MEEK M.D. On: 28-Dec-2019 1 4:15 Encounter Diagnosis: Problem not documented Appointment; MARIELOS MEEK M.D. On: 07-Jan-2020 1 5:15 Encounter Diagnosis: Problem not documented
[2020-04-03] MEDS ORDERED: DIAZEPAM 5 MG TABLET ONE (23:52)
[2020-04-03] MEDS ORDERED: DIAZEPAM 2 MG TABLET ONE (23:54)
--- NOTE | 2020-04-04 01:19 | EDPHYS ---
Physician Documentation [facility] Name: Evie Apple Age: 75 yrs Sex: Female : 1945 Arrival Date: 04/03/2020 Time: 22:56 Bed 4 Private MD: ED Physician Rishi Conde HPI: 04/03 23:44 This 75 yrs old Female presents to ER via Wheelchair with complaints of Fall cp Injury, Knee Injury. 23:44 Details of fall: The patient fell from a height, down approximately 4 stairs, from an cp upright position, while walking, and struck a concrete surface. Onset: The symptoms/episode began/occurred today. Associated injuries: The patient sustained right upper arm, ecchymosis, painful injury, right knee, decreased range of motion, painful injury, swelling, right ankle, painful injury. Historical: - Allergies: 23:30 Sedatives (severe nausea); lp1 - Home Meds: 23:30 losartan 100 mg oral tab 1 tab once daily [Active]; lp1 - PMHx: 23:30 Hypertension; Hyperlipidemia; Osteoporosis; lp1 - PSHx: 23:30 Appendectomy; lp1 - Immunization history:: Adult Immunizations up to date. - Social history:: Smoking status: Patient denies any tobacco usage or history of. ROS: 23:50 Constitutional: Negative for body aches, chills, fever. cp 23:50 Eyes: Negative for injury, pain, redness, and discharge. cp 23:50 Neck: Negative for pain with movement, pain at rest, stiffness. 23:50 Cardiovascular: Negative for chest pain, palpitations. 23:50 Respiratory: Negative for cough, shortness of breath, wheezing. 23:50 Back: Negative for pain at rest, pain with movement. 23:50 MS/extremity: Positive for injury or acute deformity, pain, of the right upper arm and right knee and right ankle, Negative for paresthesias. 23:50 Neuro: Negative for altered mental status, headache, loss of consciousness, syncope, weakness. 23:50 All other systems are negative. Exam: 23:55 Constitutional: The patient appears in no acute distress, alert, awake, cp non-diaphoretic, non-toxic, well developed, well nourished, uncomfortable. 23:55 Head/Face: Normocephalic, atraumatic. cp 23:55 Eyes: Periorbital structures: appear normal, Conjunctiva: normal, no exudate, no injection, Lids and lashes: appear normal, bilaterally. 23:55 ENT: External ear(s): are unremarkable, Nose: is normal, Mouth: Lips: moist, Oral mucosa: moist, Posterior pharynx: Airway: no evidence of obstruction, patent. 23:55 Neck: C-spine: vertebral tenderness, is not appreciated, crepitus, is not appreciated, ROM/movement: is normal, is supple, without pain, no range of motions limitations, no nuchal rigidity. 23:55 Chest/axilla: Inspection: normal, Palpation: is normal, no crepitus, no tenderness. 23:55 Cardiovascular: Rate: normal, Rhythm: regular. 23:55 Respiratory: the patient does not display signs of respiratory distress, Respirations: normal, no use of accessory muscles, no retractions, labored breathing, is not present, Breath sounds: are clear throughout, no decreased breath sounds. 23:55 Abdomen/GI: Inspection: abdomen appears normal, Bowel sounds: active, all quadrants, Palpation: abdomen is soft and non-tender, in all quadrants. 23:55 Back: pain, is absent, ROM is normal. 23:55 Musculoskeletal/extremity: Extremities: grossly normal except: noted in the right upper arm: ecchymosis, pain, tenderness, There is no evidence of deformity, noted in the right ankle: pain, tenderness, no evidence of decreased ROM, deformity, Joints: All joints are normal except the right knee displays effusion, limited range of motion, painful range of motion, swelling, tenderness. 23:55 Skin: intact with no open wounds noted. 23:55 Neuro: Orientation: to person, place \T\ time. Mentation: is normal, Motor: moves all fours, strength is normal. Vital Signs: 23:27 BP 184 / 84; Pulse 90; Resp 18; Temp 97.9(O); Pulse Ox 99% on R/A; Weight 66.68 kg (R); lp1 Height 5 ft. 2 in. (157.48 cm); Pain 9/10; 05/08 00:30 BP 177 / 76; Pulse 72; Resp 16; Temp 98; Pulse Ox 99% on R/A; Pain 9/10; rr5 01:00 BP 160 / 80; Pulse 99; Resp 17; Pulse Ox 99% on R/A; Pain 9/10; rr5 01:30 BP 178 / 92; Pulse 101; Resp 17; Temp 98; Pulse Ox 99% on R/A; Pain 8/10; rr5 02:44 BP 175 / 95; Pulse 105; Resp 18; Pulse Ox 100% on R/A; rr5 04/03 23:27 Body Mass Index 26.89 (66.68 kg, 157.48 cm) lp1 MDM: 04/03 23:27 Patient medically screened. cp 04/04 00:00 Differential diagnosis: contusion, fracture, multiple trauma. cp 01:00 Data reviewed: vital signs, nurses notes, radiologic studies, plain films, I have cp discussed the patient's presentation/case with the attending Emergency Department Physician;. 01:00 Physician consultation: Ceferino Pang MD was called at 01:00, was contacted at 01:00, cp regarding consult, requests transfer to [facility] due to depression and displacement of fracture and need for reconstructive surgery. 04/03 23:39 Order name: XRAY Knee RIGHT 3 view 04/03 23:39 Order name: XRAY Ankle RIGHT 3 view 04/03 23:44 Order name: Humerus Right XRAY 04/04 01:19 Order name: IV; Complete Time: 02:00 cp Administered Medications: 04/03 23:47 Drug: Diazepam 2 mg Route: PO; ls4 04/04 00:10 Follow up: Response: No adverse reaction; Anxiety decreased ls4 01:50 Drug: NS 0.9% 1000 ml Route: IV; Rate: 75 ml/hr; Site: left forearm; rr5 03:14 Follow up: IV Status: IV converted to saline lock rv Disposition: 05:37 Co-signature as Attending Physician, Rishi Conde MD. rn Disposition: 04/04/20 01:19 Transfer ordered to [facility]. Diagnosis are Fall (on) (from) other stairs and steps, Comminuted right lateral tibial plateau fracture, Pain in right ankle and joints of right foot, Pain in right upper arm. - Reason for transfer: Higher level of care. - Accepting physician is DR Perez. - Condition is Stable. - Problem is new. - Symptoms have improved. Signatures: Dispatcher [employer] EDMS Rishi Conde MD MD rn Pena, Laura RN RN lp1 Roger Flores PA PA cp Sabino Grant, RN RN rv Tari Lagos, RN RN ls4 Gallo Hall, RN RN rr5 Corrections: (The following items were deleted from the chart) 00:55 04/03 23:40 Shoulder Right 2 View+RAD.RAD.BRZ ordered. [facility] 04/04 01:24 01:19 04/04/2020 01:19 Transfer ordered to [facility]. Diagnosis is Fall cp (on) (from) other stairs and steps. Reason for transfer: Higher level of care. Accepting physician is DR Perez. Condition is Stable. Problem is new. Symptoms have improved. cp 03:14 01:24 04/04/2020 01:19 Transfer ordered to [facility]. Diagnosis is Fall rv (on) (from) other stairs and steps; Comminuted right lateral tibial plateau fracture; Pain in right ankle and joints of right foot; Pain in right upper arm. Reason for transfer: Higher level of care. Accepting physician is DR Perez. Condition is Stable. Problem is new. Symptoms have improved. cp
--- NOTE | 2020-04-04 01:19 | ER ---
Nurse's Notes [facility] Name: Evie Apple Age: 75 yrs Sex: Female : 1945 Arrival Date: 04/03/2020 Time: 22:56 Bed 4 Private MD: Diagnosis: Fall (on) (from) other stairs and steps;Comminuted right lateral tibial plateau fracture;Pain in right ankle and joints of right foot;Pain in right upper arm Presentation: 04/03 23:27 Chief complaint: Patient states: Missed a step going down stairs outside house and fell lp1 hitting right knee and right shoulder on concrete; No LOC; Pain to right knee on motion. Coronavirus screen: Proceed with normal triage. Ebola Screen: No symptoms or risks identified at this time. Initial Sepsis Screen: Does the patient meet any 2 criteria? No. Patient's initial sepsis screen is negative. Does the patient have a suspected source of infection? No. Patient's initial sepsis screen is negative. Risk Assessment: Do you want to hurt yourself or someone else? Patient reports no desire to harm self or others. Onset of symptoms was April 03, 2020. 23:27 Method Of Arrival: Wheelchair lp1 23:27 Acuity: CEDRIC 3 lp1 Triage Assessment: 23:15 General: Appears in no apparent distress. uncomfortable, Behavior is calm, cooperative. ls4 23:15 Pain: Complains of pain in right arm and right knee Pain currently is 8 out of 10 on a ls4 pain scale. Quality of pain is described as sharp, tender, Pain began suddenly, 1 hour ago. Neuro: No deficits noted. Cardiovascular: No deficits noted. Denies chest pain. Cardiovascular:. Respiratory: No deficits noted. Respiratory effort is even, unlabored, Respiratory pattern is regular, Denies cough, shortness of breath labored breathing, pain with respiration, pain with cough, pain with movement, air hunger. GI: No deficits noted. No signs and/or symptoms were reported involving the gastrointestinal system. : No deficits noted. No signs and/or symptoms were reported regarding the genitourinary system. Derm: Skin is intact, Skin is dry, Skin is pink, warm \T\ dry. Musculoskeletal: Circulation, motion, and sensation intact. Capillary refill < 3 seconds, Range of motion: limited in right knee Swelling absent Reports pain in right arm and right knee. Historical: - Allergies: 23:30 Sedatives (severe nausea); lp1 - Home Meds: 23:30 losartan 100 mg oral tab 1 tab once daily [Active]; lp1 - PMHx: 23:30 Hypertension; Hyperlipidemia; Osteoporosis; lp1 - PSHx: 23:30 Appendectomy; lp1 - Immunization history:: Adult Immunizations up to date. - Social history:: Smoking status: Patient denies any tobacco usage or history of. Screenin:30 Abuse screen: Denies threats or abuse. Denies injuries from another. Nutritional lp1 screening: No deficits noted. Tuberculosis screening: No symptoms or risk factors identified. Fall Risk Total Chavez Fall Scale indicates High Risk Score (45 or more points). Fall prevention measures have been instituted. Side Rails Up X 2 As available patient and family educated on Fall Prevention Program and Strategies. Assessment: 23:59 General: SEE TRIAGE NOTE. ls4 04/04 01:00 General: Appears uncomfortable, Behavior is calm, cooperative. rr5 01:00 Pain: Complains of pain in right arm and right leg Pain currently is 9 out of 10 on a rr5 pain scale. Neuro: Level of Consciousness is awake, alert, obeys commands, Oriented to person, place, time, situation. Cardiovascular: Patient's skin is warm and dry. Respiratory: Airway is patent. Derm: Skin is intact. Musculoskeletal: Range of motion: limited in right shoulder, right elbow, right knee and right ankle Reports pain in right arm and right leg. 01:56 Reassessment: report given to [facility] Triage nurse Cesar Perez. Pain: Complains of rr5 pain in right arm and right leg Pain currently is 9 out of 10 on a pain scale. 01:57 Reassessment: Reassessment: patient refused pain medication up to this time because of rr5 severe reaction (vomiting). Vital Signs: 04/03 23:27 BP 184 / 84; Pulse 90; Resp 18; Temp 97.9(O); Pulse Ox 99% on R/A; Weight 66.68 kg (R); lp1 Height 5 ft. 2 in. (157.48 cm); Pain 9/10; 04/04 00:30 BP 177 / 76; Pulse 72; Resp 16; Temp 98; Pulse Ox 99% on R/A; Pain 9/10; rr5 01:00 BP 160 / 80; Pulse 99; Resp 17; Pulse Ox 99% on R/A; Pain 9/10; rr5 01:30 BP 178 / 92; Pulse 101; Resp 17; Temp 98; Pulse Ox 99% on R/A; Pain 8/10; rr5 02:44 BP 175 / 95; Pulse 105; Resp 18; Pulse Ox 100% on R/A; rr5 04/03 23:27 Body Mass Index 26.89 (66.68 kg, 157.48 cm) lp1 ED Course: 04/03 22:56 Patient arrived in ED. bp1 23:25 Roger Flores PA is PHCP. cp 23:25 Rishi Conde MD is Attending Physician. cp 23:28 Triage completed. lp1 23:28 Arm band placed on. lp1 23:53 Tari Lagos RN is Primary Nurse. ls4 23:59 Patient has correct armband on for positive identification. Bed in low position. Call ls4 light in reach. Side rails up X 1. Pulse ox on. NIBP on. Warm blanket given. Pillow given. Ice pack to injury. Verbal reassurance given. Elevated right leg. Diet: Patient is NPO. 04/04 00:45 XRAY Knee RIGHT 3 view In Process Unspecified. EDMS 00:46 XRAY Ankle RIGHT 3 view In Process Unspecified. EDMS 00:46 Humerus Right XRAY In Process Unspecified. EDMS 01:55 No provider procedures requiring assistance completed. Inserted saline lock: 18 gauge rr5 in left antecubital area, using aseptic technique. Orthoglass splint: Posterior long leg splint applied on right leg. Administered Medications: 04/03 23:47 Drug: Diazepam 2 mg Route: PO; ls4 04/04 00:10 Follow up: Response: No adverse reaction; Anxiety decreased ls4 01:50 Drug: NS 0.9% 1000 ml Route: IV; Rate: 75 ml/hr; Site: left forearm; rr5 03:14 Follow up: IV Status: IV converted to saline lock rv Outcome: 01:19 ER care complete, transfer ordered by . cp 03:14 Patient left the ED. rv Signatures: Dispatcher [employer] EDMS Cindy Borja RN RN lp1 Roger Flores PA PA cp Vicente, Ronaldo, RN RN rv Demond, Tari, RN RN ls4 Gallo Hall RN RN rr5 Sonya Laurent
[2020-04-04] MEDS ORDERED: NA CHLORIDE 0.9% 1,000 ML ONE (01:50)
--- NOTE | 2020-04-04 08:33 | RAD REPORT ---
EXAM DESCRIPTION: RAD - Ankle Right 3 View - 04/04/2020 12:45 am CLINICAL HISTORY: fall down stairs;Pain COMPARISON: No comparisons FINDINGS: Small plantar calcaneal spur is seen. No acute fracture or dislocation evident.
--- NOTE | 2020-04-04 08:35 | RAD REPORT ---
EXAM DESCRIPTION: RAD - Knee Right 3 View - 04/04/2020 12:45 am CLINICAL HISTORY: fall down stairs;Pain COMPARISON: No comparisons FINDINGS: Moderately depressed fracture involving the lateral tibial plateau is seen with moderate l ipohemarthrosis. No dislocation evident.
--- NOTE | 2020-04-04 08:46 | RAD REPORT ---
EXAM DESCRIPTION: RAD - Humerus Right - 04/04/2020 12:45 am CLINICAL HISTORY: fall down stairs;Pain COMPARISON: No comparisons FINDINGS: Soft tissue swelling is seen about the elbow. The bones are osteopenic. No gross fracture or dislocation appreciated.
[2020-04-04 11:08] VITALS: TEMP 98
[2020-04-04 11:12] VITALS: BP 175/95; O2SAT 100
== END 2020-04-04 03:14 | disposition short-term general hospital (02) ==
LOC: ER 22:51
PROC: 2W3LX1Z Immobilization of Right Lower Extremity using Splint (ICD-10-PCS; principal; 2020-04-04)
DX: S82.141A Displaced bicondylar fracture of right tibia, initial encounter for closed fracture (principal); M79.621 Pain in right upper arm; W10.9XXA Fall (on) (from) unspecified stairs and steps, initial encounter; Y93.01 Activity, walking, marching and hiking; Y92.9 Unspecified place or not applicable; Z88.8 Allergy status to other drugs, medicaments and biological substances; I10 Essential (primary) hypertension; E78.5 Hyperlipidemia, unspecified
CPT/HCPCS: 73060; 73562; 73610; 96360; 99284; 29505; J7030